=== PATIENT | female | born 1945 | race Caucasian/White ===

== ENCOUNTER 2018-09-10 14:30 | Inpatient (IN) | payer MEDICARE, BC ==
[2018-09-10] MEDS ORDERED: Ondansetron 4 MG/2 ML SDV IV PRN (15:15)
[2018-09-10] MEDS ORDERED: Sodium Chloride 0.9% 10 ML Syringe FLUSH PRN (15:15)
[2018-09-10 16:03] LABS: ANION GAP 14.2 mmol/L (5-15)
--- NOTE | 2018-09-10 17:22 | CR ---
[id number] RAD/RAD Abd Flat and Upright 2V Exam: RAD Abd Flat and Upright 2V Clinical Data: ABDOMINAL PAIN COMPARISON: NO PREVIOUS SIMILAR EXAM IS AVAILABLE FINDINGS: There is significant gastric distention. There is moderate small bowel distention. There is no free air. There are surgical changes. There is no organomegaly. IMPRESSION: MODERATE BOWEL DISTENTION. SIGNIFICANT GASTRIC DISTENTION. CONSIDER CAT SCAN IF NEEDED. Haile Velasquez MD 09/10/18 1533 Thank you for allowing us to participate in the care of your patient.
[2018-09-10] MEDS: Sodium Chloride 0.9% 1,000 ML IV SCH (18:06)
[2018-09-10] MEDS: QUEtiapine 25 MG Tab PO SCH (20:18)
[2018-09-10] MEDS: Aluminum Hydroxide/Magnesium Hydroxide/Simethicone Susp 30 ML Cup PO PRN (20:19)
[2018-09-10] MEDS: Latanoprost 0.005% Ophth Soln 2.5 ML Bottle EYEBOTH SCH (20:20)
[2018-09-10] MEDS ORDERED: LANCETS MC SCH (21:00)
[2018-09-11] MEDS: Sodium Chloride 0.9% 1,000 ML IV SCH ×2 (04:48→19:40)
[2018-09-11] MEDS ORDERED: Insulin Glargine,Human Rec. Analog 100 Units/ML 3 ML Pen SUBCUT SCH ×2 (09:00)
[2018-09-11] MEDS ORDERED: Non-Formulary Medication 1 Each (Insulin Degludec [Tresiba] 30 UNITS) SUBCUT SCH (09:00)
[2018-09-11] MEDS: Ezetimibe 10 MG Tab PO SCH (09:58)
[2018-09-11] MEDS: Carvedilol 12.5 MG Tab PO SCH ×2 (09:58→18:46)
[2018-09-11] MEDS: Aspirin 81 MG Tab.Chew PO SCH (09:59)
[2018-09-11] MEDS: Citalopram 20 MG Tab PO SCH (09:59)
[2018-09-11] MEDS ORDERED: PETROLATUM TOP PRN (12:41)
[2018-09-11] MEDS ORDERED: [UNRECOGNIZED DRUG - OTHER] TOP PRN (12:41)
[2018-09-11] MEDS ORDERED: MINERAL OIL TOP PRN (12:41)
--- NOTE | 2018-09-11 12:47 | PCM.PN ---
- General Info Date of Service: 09/11/18 Functional Status: Reports: Pain Controlled, Tolerating Diet, Urinating, Other ( Is feeling much better today). Denies: Ambulating, New Symptoms - Review of Systems General: Reports: Weakness HEENT: Reports: Other (Hard of hearing) Pulmonary: Reports: No Symptoms Cardiovascular: Reports: Lightheadedness (Lightheadedness upon standing) Gastrointestinal: Reports: Constipation (Now having bowel movements). Denies: Diarrhea, Difficulty Swallowing, Nausea, Vomiting Genitourinary: Reports: No Symptoms Musculoskeletal: Reports: Foot Pain (Bottom of both feet painful). Denies: Joint Swelling Skin: Reports: Pallor, Dryness, Other (Cracked skin bottom of both feet) Neurological: Reports: Difficulty Walking, Weakness - Patient Data Vitals - Most Recent: Last Vital Signs Temp 98.8 F 09/11/18 11:00 Pulse 62 09/11/18 11:00 Resp 18 09/11/18 11:00 BP 136/53 L 09/11/18 11:00 Pulse Ox 93 L 09/11/18 11:00 Weight - Most Recent: 195 lb 4.8 oz I&O - Last 24 Hours: Intake & Output 09/10/18 09/11/18 09/11/18 22:59 06:59 14:59 Intake Total 1225 503 Output Total 1900 Balance 1225 -1397 Lab Results Last 24 Hours: Laboratory Results - last 24 hr 09/10/18 09/10/18 09/11/18 Range/Units 15:30 15:30 07:30 WBC 13.97 H (5.00-10.00) 10^3/uL RBC 3.90 (3.80-5.50) 10^6/uL Hgb 11.1 L (12.0-16.0) g/dL Hct 34.1 L (37.0-47.0) % MCV 87.4 (82.0-92.0) fL MCH 28.5 (27.0-31.0) pg MCHC 32.6 (32.0-36.0) g/dL RDW 13.2 (11.5-14.5) % Plt Count 206 (150-400) 10^3/uL MPV 8.9 (7.4-10.4) fL Immature Gran % (Auto) 0.3 (0.0-5.0) % Neut % (Auto) 64.1 (50.0-70.0) % Lymph % (Auto) 28.3 (20.0-40.0) % [place] % (Auto) 4.7 (2.0-8.0) % Eos % (Auto) 2.4 (1.0-3.0) % Baso % (Auto) 0.2 (0.0-1.0) % Immature Gran # (Auto) 0.04 (0.00-0.50) 10^3/uL Neut # (Auto) 8.95 H (2.50-7.00) 10^3/uL Lymph # (Auto) 3.96 (1.00-4.00) 10^3/uL [place] # (Auto) 0.66 (0.10-0.80) 10^3/uL Eos # (Auto) 0.33 H (0.10-0.30) 10^3/uL Baso # (Auto) 0.03 (0.00-0.10) 10^3/uL Sodium 136 139 (136-145) mmol/L Potassium 5.0 5.3 (3.3-5.3) mmol/L Chloride 99 107 (98-115) mmol/L Carbon Dioxide 27.8 24.3 (21.0-32.0) mmol/L Anion Gap 14.2 13.0 (5-15) mmol/L BUN 93 H* 84 H* (6-25) mg/dL Creatinine 2.67 H 1.87 H (0.51-1.17) mg/dL Est Cr Clr Drug Dosing 15.06 21.50 mL/min Estimated GFR (MDRD) 17 26 mL/min Glucose 249 H 177 H (75 - 99) mg/dL POC Glucose (74-106) mg/dl Calcium 9.8 8.5 L (8.7-10.3) mg/dL Total Bilirubin 0.2 (0.2-1.0) mg/dL AST 12 L (15-37) U/L ALT 17 (12-78) U/L Alkaline Phosphatase 77 (46-116) IU/L Total Protein 7.2 (6.4-8.2) g/dL Albumin 3.56 (3.00-4.80) g/dL 09/11/18 09/11/18 Range/Units 07:30 10:03 WBC 12.73 H (5.00-10.00) 10^3/uL RBC 3.46 L (3.80-5.50) 10^6/uL Hgb 9.9 L (12.0-16.0) g/dL Hct 30.3 L (37.0-47.0) % MCV 87.6 (82.0-92.0) fL MCH 28.6 (27.0-31.0) pg MCHC 32.7 (32.0-36.0) g/dL RDW 13.1 (11.5-14.5) % Plt Count 162 (150-400) 10^3/uL MPV 8.8 (7.4-10.4) fL Immature Gran % (Auto) 0.1 (0.0-5.0) % Neut % (Auto) 63.8 (50.0-70.0) % Lymph % (Auto) 28.3 (20.0-40.0) % [place] % (Auto) 4.6 (2.0-8.0) % Eos % (Auto) 3.0 (1.0-3.0) % Baso % (Auto) 0.2 (0.0-1.0) % Immature Gran # (Auto) 0.01 (0.00-0.50) 10^3/uL Neut # (Auto) 8.13 H (2.50-7.00) 10^3/uL Lymph # (Auto) 3.60 (1.00-4.00) 10^3/uL [place] # (Auto) 0.58 (0.10-0.80) 10^3/uL Eos # (Auto) 0.38 H (0.10-0.30) 10^3/uL Baso # (Auto) 0.03 (0.00-0.10) 10^3/uL Sodium (136-145) mmol/L Potassium (3.3-5.3) mmol/L Chloride (98-115) mmol/L Carbon Dioxide (21.0-32.0) mmol/L Anion Gap (5-15) mmol/L BUN (6-25) mg/dL Creatinine (0.51-1.17) mg/dL Est Cr Clr Drug Dosing mL/min Estimated GFR (MDRD) mL/min Glucose (75 - 99) mg/dL POC Glucose 386 H (74-106) mg/dl Calcium (8.7-10.3) mg/dL Total Bilirubin (0.2-1.0) mg/dL AST (15-37) U/L ALT (12-78) U/L Alkaline Phosphatase (46-116) IU/L Total Protein (6.4-8.2) g/dL Albumin (3.00-4.80) g/dL Med Orders - Current: Current Medications Al Hydroxide/Mg Hydroxide (Mag-Al Plus) 30 ml PO QID PRN PRN Reason: heartburn/upset stomach Last Admin: 09/10/18 20:19 Dose: 30 ml Aspirin (Aspirin) 81 mg PO DAILY [facility] Last Admin: 09/11/18 09:59 Dose: 81 mg Carvedilol (Coreg) 25 mg PO BIDAC [facility] Last Admin: 09/11/18 09:58 Dose: 25 mg Citalopram Hydrobromide (Celexa) 20 mg PO DAILY [facility] Last Admin: 09/11/18 09:59 Dose: 20 mg Ezetimibe (Zetia) 10 mg PO DAILY [facility] Last Admin: 09/11/18 09:58 Dose: 10 mg Sodium Chloride (Normal Saline) 1,000 mls @ 70 mls/hr IV ASDIRECTED [facility] Last Admin: 09/11/18 04:48 Dose: 70 mls/hr Insulin Glargine (Lantus Solostar) 30 units SUBCUT DAILY [facility] Last Admin: 09/11/18 09:59 Dose: 30 units Latanoprost (Xalatan 0.005% Ophth Soln) 0 ml EYEBOTH BEDTIME [facility] Last Admin: 09/10/18 20:20 Dose: 1 drop Ondansetron HCl (Zofran) 4 mg IV Q4H PRN PRN Reason: Nausea/Vomiting Last Admin: 09/10/18 15:45 Dose: 4 mg Quetiapine Fumarate (Seroquel) 12.5 mg PO BEDTIME [facility] Last Admin: 09/10/18 20:18 Dose: 12.5 mg Senna/Docusate Sodium (Senna Plus) 4 tab PO BID [facility] Last Admin: 09/11/18 09:59 Dose: Not Given Sodium Chloride (Saline Flush) 10 ml FLUSH Q8HR PRN PRN Reason: keep vein open Last Admin: 09/10/18 15:30 Dose: 10 ml Discontinued Medications Insulin Glargine (Lantus Solostar) 40 units SUBCUT DAILY [facility] Non-Formulary Medication (Insulin Degludec [Tresiba]) 30 units SUBCUT DAILY [facility] Last Admin: 09/11/18 12:29 Dose: Not Given Non-Formulary Medication (Lancets [Lancets]) 1 each TID JOHNNY - Exam Quality Assessment: No: Supplemental Oxygen General: Alert, Oriented, Cooperative, No Acute Distress HEENT: Pupils Equal, Pupils Reactive, EOMI, Mucous Membr. Moist/[place] Neck: Supple Lungs: Clear to Auscultation, Normal Respiratory Effort Cardiovascular: Regular Rate, Regular Rhythm, Murmurs GI/Abdominal Exam: Soft, No Mass, Distended (Distention improved from yesterday) . No: Rigid, Rebound, Abnormal Bowel Sounds, Mass (Female) Exam: Deferred Back Exam: No: CVA Tenderness (L), CVA Tenderness (R) Extremities: No Pedal Edema Peripheral Pulses: 2+: Radial (R), Femoral (L) Skin: Other (Dry cracked skin bottom of both feet) Neurological: No New Focal Deficit Psy/Mental Status: Alert, Normal Affect, Normal Mood - Problem List Review Problem List Initiated/Reviewed/Updated: Yes - My Orders Last 24 Hours: My Active Orders 09/10/18 15:15 Patient Status [ADT] Routine Up to Chair [RC] ASDIRECTED Vital Signs [RC] 0300,0700,1100,1500,1900,2300 Ondansetron [Zofran] 4 mg IV Q4H PRN Sodium Chloride 0.9% [Saline Flush] 10 ml FLUSH Q8HR PRN Peripheral IV Insertion Adult [OM.PC] Routine Resuscitation Status Routine 09/10/18 15:20 Peripheral IV Care [RC] 0900,2100 09/10/18 15:30 Sodium Chloride 0.9% [Normal Saline] 1,000 ml IV ASDIRECTED 09/10/18 19:59 Alum Hydrox/Mag Hydrox/Simeth [Mag-Al Plus] 30 ml PO QID PRN 09/10/18 21:00 Docusate Sodium/Sennosides [Senna Plus] 4 tab PO BID Latanoprost [Xalatan 0.005% Ophth Soln] 0 ml EYEBOTH BEDTIME QUEtiapine [SEROquel] 12.5 mg PO BEDTIME 09/10/18 Dinner Clear Liquid Diet [DIET] 09/11/18 07:30 Carvedilol [Coreg] 25 mg PO BIDAC 09/11/18 09:00 Aspirin 81 mg PO DAILY Citalopram [Celexa] 20 mg PO DAILY Ezetimibe [Zetia] 10 mg PO DAILY Insulin Glarg,Human.Rec.Analog [LantUS Solostar] 30 units SUBCUT DAILY - Plan Plan:: History Obdulia is a 73-year-old female who was admitted from outpatient clinic yesterday by myself Timmy Bateman nurse practitioner due to low blood pressure along with dizziness. Patient was sent from [facility] from [place] swing bed on August 29 due to dizziness, uncontrolled hypertension, uncontrolled blood sugar levels along with hyperkalemia. Patient has a history of CKD, hyperlipidemia, COPD, obesity, CHRISTEN, coronary artery disease with congestive heart failure and was discharged from [facility] on August 31 and was to follow-up with home health. She was seen by Asael hairston PA had labs drawn and was to follow-up today. Patient is hard of hearing. She is having a difficult time managing her medication thereby endocrinology simplified her treatment regimen by placing her on Novolin 70/30 15 units BID 30 minutes before breakfast and supper. Due to her uncontrolled hypertension she was started on amlodipine 10 mg daily , carvedilol 25 mg BID, clonidine 0.1 mg BID and metolazone 2.5 mg Friday and .Metolazone was then replaced with lasix 40 mg BID.Pressures remained elevatedthroughout the stay and it was recommended that she be managed as outpatient for workup of secondary hypertension. Patient did have hyperkalemia during swing bed at [place] Aldactone and Vasotec were stopped and potassium normalized over the course of the stay. Potassium was 5.1at discharge and Vasotec was restarted.Patient was advised to follow a low sodium, low potassium diet. She is in the clinic today complaining of abdominal distention, constipation, nausea and vomiting, dizziness and her blood pressure is low. Bowel move in 3- 4 days. Denies any fever but states she is quite dizzy today. Update on rounds, patient is feeling better, multiple stools throughout the night, renal function improving with gentle bolus and IV fluids, improved appetite, no more vomiting. Primary hospital problems --Acute kidney injury --Hypotension --Dehydration --T2 DM, uncontrolled --Constipation, with gastric distention and small bowel distention Chronic problems --HFpEF EF 65% --CKD III, acute injury on --CAD --Hyperlipidemia --COPD --Obesity --CHRISTEN --Pick's disease --Depression and anxiety --Glaucoma --Iron deficiency anemia Disposition/overall plan --Continue inpatient status --Reduce IV fluids --SS consult
[2018-09-11] MEDS: Aluminum Hydroxide/Magnesium Hydroxide/Simethicone Susp 30 ML Cup PO PRN (20:18)
[2018-09-11] MEDS: QUEtiapine 25 MG Tab PO SCH (20:19)
[2018-09-11] MEDS: Latanoprost 0.005% Ophth Soln 2.5 ML Bottle EYEBOTH SCH (20:21)
[2018-09-12 07:44] LABS: ANION GAP 12.6 mmol/L (5-15)
[2018-09-12] MEDS: Insulin Regular, Human 100 Units/ML 10 ML Vial SUBCUT SCH ×2 (07:45→08:23)
[2018-09-12] MEDS: Carvedilol 12.5 MG Tab PO SCH (07:53)
[2018-09-12] MEDS: Ezetimibe 10 MG Tab PO SCH (08:40)
[2018-09-12] MEDS: Aspirin 81 MG Tab.Chew PO SCH (08:40)
[2018-09-12] MEDS: Citalopram 20 MG Tab PO SCH (08:40)
--- NOTE | 2018-09-12 10:26 | PCM.DCSUM1 ---
Discharge Summary - Hospital Course Diagnosis: Stroke: No - Discharge Data Discharge Date: 09/12/18 Discharge Disposition: DC/Tfer W/I Hosp To Swing 61 Condition: Good - Discharge Plan Home Medications: Home Meds Acetaminophen with Codeine [Acetaminophen-Cod #3] 1 - 2 tab PO Q6H PRN 08/07/18 [History] Carvedilol 25 mg PO BIDAC 08/07/18 [History] Citalopram [Citalopram HBr] 20 mg PO DAILY 08/07/18 [History] Enalapril [Vasotec] 20 mg PO BID 08/07/18 [History] Lancets 1 each [facility] TID 08/07/18 [History] [place]-3 Fatty Acids/DHA/EPA [[place]-3 Softgel] 1,000 mg PO BID 08/07/18 [History] Sennosides/Docusate Sodium [Senna Plus Tablet] 4 tab PO BID 08/07/18 [History] amLODIPine [Norvasc] 5 mg PO DAILY 08/07/18 [History] cloNIDine HCl [Clonidine HCl ER] 0.1 mg PO BID 08/07/18 [History] Aspirin 81 mg PO DAILY 09/10/18 [History] Calcium Carbonate/Vitamin D3 [Calcium 600 + Vit D 400 Tablet] 1 each PO BIDMEALS 09/10/18 [History] Ezetimibe 1 tab PO DAILY 09/10/18 [History] Furosemide 40 mg PO DAILY 09/10/18 [History] Insulin Degludec [Tresiba] 30 units SUBCUT DAILY 09/10/18 [History] Iron Polysaccharide Complex [Poly-Iron] 1 cap PO ACBREAKFAST 09/10/18 [History] Latanoprost 1 drop OP BEDTIME 09/10/18 [History] Niacinamide [Niacin] 500 mg PO TID 09/10/18 [History] Nitroglycerin [Nitrostat] 0.4 mg SL ASDIRECTED 09/10/18 [History] QUEtiapine [SEROquel] 0.5 tab PO BEDTIME 09/10/18 [History] - Discharge Summary/Plan Comment DC Time >30 min.: Yes Discharge Summary/Plan Comment: Final diagnosis Acute kidney injury, improving Hypotension, resolved Dehydration, resolved T2 DM, uncontrolled, improving Constipation, with gastric distention and small bowel distention, improving History summary Obdulia is a 73-year-old female who was admitted from outpatient clinic yesterday by myself Timmy Bateman nurse practitioner due to low blood pressure along with dizziness. Patient was sent from [facility] from [place] swing bed on August 29 due to dizziness, uncontrolled hypertension, uncontrolled blood sugar levels along with hyperkalemia. Patient has a history of CKD, hyperlipidemia, COPD, obesity, CHRISTEN, coronary artery disease with congestive heart failure and was discharged from [facility] on August 31 and was to follow-up with home health. She was seen by Asael OROZCO had labs drawn and was to follow-up today. Patient is hard of hearing. She is having a difficult time managing her medication thereby endocrinology simplified her treatment regimen by placing her on Novolin 70/30 15 units BID 30 minutes before breakfast and supper. Due to her uncontrolled hypertension she was started on amlodipine 10 mg daily , carvedilol 25 mg BID, clonidine 0.1 mg BID and metolazone 2.5 mg Friday and .Metolazone was then replaced with lasix 40 mg BID.Pressures remained elevatedthroughout the stay and it was recommended that she be managed as outpatient for workup of secondary hypertension. Patient did have hyperkalemia during swing bed at [place] Aldactone and Vasotec were stopped and potassium normalized over the course of the stay. Potassium was5.1at discharge and Vasotec was restarted.Patient was advised to follow a low sodium , low potassium diet. When I seen her in [place] clinic he was complaining of abdominal distention, constipation, nausea and vomiting, dizziness and her blood pressure is low. He had no bowel movement in the previous 3-4 days. Hospital course Patient's short hospital course prior to placing her in swing bed went well. She was given a laxative early on admission and she had multiple stools with much less abdominal distention, abdominal films did demonstrate significant gastric and small bowel distention however no complicating factors such as fever or ischemic bowel was suggested since her clinical condition improved CT was likely not necessary.--Especially in light of recent contrast media injury develop into [place]. IV fluids were given and her BUN and creatinine trended down. Her blood pressure improved, her diabetes insulin blood sugars improved. Physical therapy felt patient could benefit from SNF here at [facility] for medication management, ambulation, rebuilding her strength and monitoring her blood sugars and adjusting medications Disposition Physical therapy was consulted and patient could benefit from SNF here at [facility] for medication management, ambulation, rebuilding her strength and monitoring her blood sugars and adjusting medications - General Info Date of Service: 09/12/18 Functional Status: Reports: Pain Controlled, Tolerating Diet, Ambulating, Urinating. Denies: New Symptoms - Review of Systems General: Reports: Weakness HEENT: Reports: No Symptoms Pulmonary: Reports: No Symptoms Cardiovascular: Reports: No Symptoms Gastrointestinal: Reports: No Symptoms Genitourinary: Reports: No Symptoms Musculoskeletal: Reports: No Symptoms Skin: Reports: Dryness Neurological: Reports: Weakness, Gait Disturbance. Denies: Confusion Psychiatric: Reports: No Symptoms - Patient Data Vitals - Most Recent: Last Vital Signs Temp 98.3 F 09/12/18 06:27 Pulse 57 L 09/12/18 07:53 Resp 18 09/12/18 06:27 BP 172/78 H 09/12/18 07:53 Pulse Ox 93 L 09/12/18 06:27 Weight - Most Recent: 195 lb 4.8 oz I&O - Last 24 hours: Intake & Output 09/11/18 09/12/18 09/12/18 22:59 06:59 14:59 Intake Total 1539 635 Output Total 3100 1425 Balance -1561 -790 Lab Results - Last 24 hrs: Laboratory Results - last 24 hr 09/11/18 09/12/18 09/12/18 Range/Units 17:35 07:15 07:47 Sodium 143 (136-145) mmol/L Potassium 5.1 (3.3-5.3) mmol/L Chloride 110 (98-115) mmol/L Carbon Dioxide 25.5 (21.0-32.0) mmol/L Anion Gap 12.6 (5-15) mmol/L BUN 50 H D (6-25) mg/dL Creatinine 1.13 (0.51-1.17) mg/dL Est Cr Clr Drug Dosing 35.58 mL/min Estimated GFR (MDRD) 47 mL/min Glucose 164 H (75 - 99) mg/dL POC Glucose 191 H 182 H (74-106) mg/dl Calcium 8.3 L (8.7-10.3) mg/dL Med Orders - Current: Current Medications Al Hydroxide/Mg Hydroxide (Mag-Al Plus) 30 ml PO QID PRN PRN Reason: heartburn/upset stomach Last Admin: 09/11/18 20:18 Dose: 30 ml Aspirin (Aspirin) 81 mg PO DAILY [facility] Last Admin: 09/12/18 08:40 Dose: 81 mg Carvedilol (Coreg) 25 mg PO BIDAC [facility] Last Admin: 09/12/18 07:53 Dose: Not Given Citalopram Hydrobromide (Celexa) 20 mg PO DAILY [facility] Last Admin: 09/12/18 08:40 Dose: 20 mg Ezetimibe (Zetia) 10 mg PO DAILY [facility] Last Admin: 09/12/18 08:40 Dose: 10 mg Sodium Chloride (Normal Saline) 1,000 mls @ 70 mls/hr IV ASDIRECTED [facility] Last Admin: 09/11/18 19:40 Dose: 70 mls/hr Insulin Human Regular (Novolin R) 15 unit SUBCUT BIDMEALS [facility]; Protocol Last Admin: 09/12/18 08:23 Dose: Not Given Latanoprost (Xalatan 0.005% Ophth Soln) 0 ml EYEBOTH BEDTIME [facility] Last Admin: 09/11/18 20:21 Dose: 1 drop Multi-Ingredient Ointment (Eucerin Creme) 0 gm TOP TID PRN PRN Reason: cracked heels Last Admin: 09/11/18 13:07 Dose: 1 applic Ondansetron HCl (Zofran) 4 mg IV Q4H PRN PRN Reason: Nausea/Vomiting Last Admin: 09/10/18 15:45 Dose: 4 mg Quetiapine Fumarate (Seroquel) 12.5 mg PO BEDTIME [facility] Last Admin: 09/11/18 20:19 Dose: 12.5 mg Senna/Docusate Sodium (Senna Plus) 4 tab PO BID [facility] Last Admin: 09/12/18 08:39 Dose: 3 tab Sodium Chloride (Saline Flush) 10 ml FLUSH Q8HR PRN PRN Reason: keep vein open Last Admin: 09/10/18 15:30 Dose: 10 ml Discontinued Medications Insulin Glargine (Lantus Solostar) 40 units SUBCUT DAILY [facility] Insulin Glargine (Lantus Solostar) 30 units SUBCUT DAILY [facility] Last Admin: 09/11/18 09:59 Dose: 30 units Non-Formulary Medication (Insulin Degludec [Tresiba]) 30 units SUBCUT DAILY [facility] Last Admin: 09/11/18 12:29 Dose: Not Given Non-Formulary Medication (Lancets [Lancets]) 1 each [facility] TID JOHNNY - Exam Quality Assessment: Denies: Supplemental Oxygen General: Reports: Alert, Oriented Neck: Reports: Supple Lungs: Reports: Clear to Auscultation, Normal Respiratory Effort Cardiovascular: Reports: Regular Rate, Regular Rhythm GI/Abdominal Exam: Normal Bowel Sounds, Soft. No: Distended, Guarding, Rigid, Mass (Female) Exam: Deferred Back Exam: Denies: CVA Tenderness (L), CVA Tenderness (R) Extremities: No Pedal Edema Skin: Reports: Dry Neurological: Reports: No New Focal Deficit Psy/Mental Status: Reports: Alert. Denies: Anxious
[2018-09-12] MEDS ORDERED: Sodium Chloride 0.9% 10 ML Syringe FLUSH PRN (12:30)
== END 2018-09-12 13:00 | disposition swing bed (61) | DRG 683 ==
LOC: KA.MS 14:59
PROVIDERS: ADMIT Nurse Practitioner Family; ATTEND Family Medicine
DX: N17.9 Acute kidney failure, unspecified (principal); I13.0 Hypertensive heart and chronic kidney disease with heart failure and stage 1 through stage 4 chronic kidney disease, or unspecified chronic kidney disease; I50.32 Chronic diastolic (congestive) heart failure; E86.0 Dehydration; K59.00 Constipation, unspecified; K31.89 Other diseases of stomach and duodenum; E87.5 Hyperkalemia; E11.22 Type 2 diabetes mellitus with diabetic chronic kidney disease; E66.9 Obesity, unspecified; J44.9 Chronic obstructive pulmonary disease, unspecified; G47.33 Obstructive sleep apnea (adult) (pediatric); I25.10 Atherosclerotic heart disease of native coronary artery without angina pectoris; N18.3 Chronic kidney disease, stage 3 (moderate); G31.01 Pick's disease; F02.80 Dementia in other diseases classified elsewhere, unspecified severity, without behavioral disturbance, psychotic disturbance, mood disturbance, and anxiety; F32.9 Major depressive disorder, single episode, unspecified; F41.9 Anxiety disorder, unspecified; H40.9 Unspecified glaucoma; E78.5 Hyperlipidemia, unspecified; M54.6 Pain in thoracic spine; Z68.34 Body mass index [BMI] 34.0-34.9, adult; G89.29 Other chronic pain; Z98.41 Cataract extraction status, right eye; Z79.899 Other long term (current) drug therapy; Z98.42 Cataract extraction status, left eye; Z90.89 Acquired absence of other organs
CPT/HCPCS: 36415; 74021; 80048; 80053; 82962; 85025; 97161-GP; A9270-GY; J1815-GY; J1817-GY; J2405; J7030

== ENCOUNTER 2018-09-12 10:36 | Inpatient (IN) | payer MEDICARE, BC ==
[2018-09-12] MEDS ORDERED: PETROLATUM TOP PRN (12:23)
[2018-09-12] MEDS ORDERED: Sodium Chloride 0.9% 10 ML Syringe FLUSH PRN ×2 (12:23)
[2018-09-12] MEDS ORDERED: MINERAL OIL TOP PRN (12:23)
[2018-09-12] MEDS ORDERED: [UNRECOGNIZED DRUG - OTHER] TOP PRN (12:23)
[2018-09-12] MEDS ORDERED: Sodium Chloride 0.9% 1,000 ML IV SCH (12:23)
--- NOTE | 2018-09-12 12:51 | PCM.HP ---
H&P History of Present Illness - General Date of Service: 09/12/18 Admit Problem/Dx: Admission Diagnosis/Problem Admission Diagnosis/Problem Weakness of both lower extremities Source of Information: Patient, Old Records, Provider History Limitations: Reports: No Limitations - History of Present Illness Initial Comments - Free Text/Narative: 73-year-old female who was admitted from outpatient clinic yesterday by myself Timmy Bateman nurse practitioner due to low blood pressure along with dizziness. Patient was sent from [facility] from [facility] swing bed on August 29 due to dizziness, uncontrolled hypertension, uncontrolled blood sugar levels along with hyperkalemia. Patient has a history of CKD, hyperlipidemia, COPD, obesity, CHRISTEN, coronary artery disease with congestive heart failure and was discharged from [facility] on August 31 and was to follow-up with home health. She was seen by Asael OROZCO had labs drawn and was to follow-up today. Patient is hard of hearing. She is having a difficult time managing her medication thereby endocrinology simplified her treatment regimen by placing her on Novolin 70/30 15 units BID 30 minutes before breakfast and supper. Due to her uncontrolled hypertension she was started on amlodipine 10 mg daily , carvedilol 25 mg BID, clonidine 0.1 mg BID and metolazone 2.5 mg Friday and .Metolazone was then replaced with lasix 40 mg BID.Pressures remained elevatedthroughout the stay and it was recommended that she be managed as outpatient for workup of secondary hypertension. Patient did have hyperkalemia during swing bed at [facility] Aldactone and Vasotec were stopped and potassium normalized over the course of the stay. Potassium was 5.1at discharge and Vasotec was restarted.Patient was advised to follow a low sodium, low potassium diet. - Related Data Allergies/Adverse Reactions: Allergies Allergy/AdvReac Type Severity Reaction Status Date / Time blue dye Allergy Other Verified 09/10/18 15:47 fenofibrate [From Tricor] Allergy Other Verified 09/10/18 15:47 simvastatin Allergy Other Verified 09/10/18 15:47 [id number] Reductase Allergy Cannot Verified 09/10/18 15:50 Inhibitor Remember Home Medications: Home Meds Acetaminophen with Codeine [Acetaminophen-Cod #3] 1 - 2 tab PO Q6H PRN 08/07/18 [History] Carvedilol 25 mg PO BIDAC 08/07/18 [History] Citalopram [Citalopram HBr] 20 mg PO DAILY 08/07/18 [History] Enalapril [Vasotec] 20 mg PO BID 08/07/18 [History] Lancets 1 each MC TID 08/07/18 [History] Marble-3 Fatty Acids/DHA/EPA [Ovega-3 Softgel] 1,000 mg PO BID 08/07/18 [History] Sennosides/Docusate Sodium [Senna Plus Tablet] 4 tab PO BID 08/07/18 [History] amLODIPine [Norvasc] 5 mg PO DAILY 08/07/18 [History] cloNIDine HCl [Clonidine HCl ER] 0.1 mg PO BID 08/07/18 [History] Aspirin 81 mg PO DAILY 09/10/18 [History] Calcium Carbonate/Vitamin D3 [Calcium 600 + Vit D 400 Tablet] 1 each PO BIDMEALS 09/10/18 [History] Ezetimibe 1 tab PO DAILY 09/10/18 [History] Furosemide 40 mg PO DAILY 09/10/18 [History] Insulin Degludec [Tresiba] 30 units SUBCUT DAILY 09/10/18 [History] Iron Polysaccharide Complex [Poly-Iron] 1 cap PO ACBREAKFAST 09/10/18 [History] Latanoprost 1 drop OP BEDTIME 09/10/18 [History] Niacinamide [Niacin] 500 mg PO TID 09/10/18 [History] Nitroglycerin [Nitrostat] 0.4 mg SL ASDIRECTED 09/10/18 [History] QUEtiapine [SEROquel] 0.5 tab PO BEDTIME 09/10/18 [History] Past Medical History HEENT History: Reports: Glaucoma, Hard of Hearing, Impaired Vision, Sinusitis, Other (See Below) Other HEENT History: Dyphasia, dizziness Cardiovascular History: Reports: CAD, Heart Failure, High Cholesterol, Hypertension Respiratory History: Reports: COPD, Other (See Below) Other Respiratory History: Lung nodule. 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 Endocrine/Metabolic History: Reports: Diabetes, Type II, IDDM, Obesity/BMI 30+, Other (See Below) Other Endocrine/Metabolic History: Pancreatitis. Goiter Hematologic History: Reports: Anemia, Iron Deficiency, Other (See Below) Other Hematologic History: Hyperkalemia, Hyponatremia, iron deficiency, lactic acidemia Immunologic History: Reports: None - Infectious Disease History Infectious Disease History: Reports: Chicken Pox, Measles, Mumps - Past Surgical History HEENT Surgical History: Reports: Adenoidectomy, Cataract Surgery, Tonsillectomy Other HEENT Surgeries/Procedures: left ear surgery Cardiovascular Surgical History: Reports: None GI Surgical History: Reports: Cholecystectomy, Colonoscopy Female Surgical History: Reports: Tubal Ligation Social & Family History - Family History Family Medical History: Unobtainable HEENT: Reports: Cataract, Glaucoma, Hearing Impairment, Impaired Vision, Otitis Media, Sinusitis Cardiac: Reports: Pacemaker, Prior Cardiac Arrest Other Cardiac Family History: pt states "my brothers had open heart surgery, and my mother had a pacemaker" Respiratory: Reports: COPD, Sleep Apnea GI: Reports: Chronic Constipation, GERD, Irritable Bowel Syndrome : Reports: Diabetic Nephropathy Other OBGYN Family History: cyst on R ovary Musculoskeletal: Reports: None Neurological: Reports: Dementia, Migraines, Neuropathy, Diabetic Psychiatric: Reports: Anxiety, Autism, Depression Endocrine/Metabolic: Reports: Diabetes, type II, Vitamin D Deficiency Hematologic: Reports: Anemia Oncologic: Reports: None - Caffeine Use Caffeine Use: Reports: Coffee Caffeine Use Comment: Coffee every day- one pot of coffee. Pop occasionally. H&P Review of Systems - Review of Systems: Review Of Systems: See Below General: Reports: Weakness HEENT: Reports: No Symptoms Pulmonary: Reports: No Symptoms Cardiovascular: Reports: No Symptoms Gastrointestinal: Reports: No Symptoms Genitourinary: Reports: No Symptoms Musculoskeletal: Reports: No Symptoms Skin: Reports: Dryness Psychiatric: Reports: No Symptoms Neurological: Reports: No Symptoms Hematologic/Lymphatic: Reports: No Symptoms Immunologic: Reports: No Symptoms Exam - Exam Exam: See Below - Exam Quality Assessment: No: Supplemental Oxygen General: Alert, Oriented, Cooperative Neck: Supple Lungs: Clear to Auscultation, Normal Respiratory Effort Cardiovascular: Regular Rate, Regular Rhythm GI/Abdominal Exam: Normal Bowel Sounds, Soft. No: Distended, Guarding, Rigid, Mass (Female) Exam: Deferred Rectal (Female) Exam: Deferred Back Exam: No: CVA Tenderness (L), CVA Tenderness (R) Extremities: No Pedal Edema Peripheral Pulses: 1+: Radial (R), 2+: Femoral (L) Skin: Dry, Other (dry cracked skin bottom of both feet) Neurological: Cranial Nerves Intact, Reflexes Equal Bilateral Neuro Extensive - Mental Status: Alert, Oriented x3, Normal Mood/Affect, Normal Cognition Neuro Extensive - Motor, Sensory, Reflexes: CN II-XII Intact, Normal Gait, Normal Reflexes Psychiatric: Alert, Normal Affect, Normal Mood Problem List Initiated/Reviewed/Updated: Yes Orders Last 24hrs: Active Orders 24 hr Category Date Time Status Patient Status [ADT] Routine ADT 09/12/18 12:25 Active Blood Glucose Check, Bedside [RC] TIDAC Care 09/12/18 12:23 Active Peripheral IV Care [RC] . DIRECTED Care 09/12/18 12:23 Active Peripheral IV Care [RC] . DIRECTED Care 09/12/18 12:23 Active Ready for Discharge [RC] PER UNIT ROUTINE Care 09/12/18 12:23 Active Up to Chair [RC] ASDIRECTED Care 09/12/18 12:23 Active Vital Signs [RC] Q4H Care 09/12/18 12:23 Active Potassium [DIET] Diet 09/12/18 Dinner Active Sodium Restricted Diet [DIET] Diet 09/12/18 Dinner Active Alum Hydrox/Mag Hydrox/Simeth [Mag-Al Plus] Med 09/12/18 12:23 Ordered 30 ml PO QID PRN Aspirin Med 09/13/18 09:00 Ordered 81 mg PO DAILY Carvedilol [Coreg] Med 09/12/18 17:30 Ordered 25 mg PO BIDAC Mobridge/Min Oil/Kisha/Wool Alcoh [Eucerin Creme] Med 09/12/18 12:23 Ordered 0 gm TOP TID PRN Citalopram [Celexa] Med 09/13/18 09:00 Ordered 20 mg PO DAILY Docusate Sodium/Sennosides [Senna Plus] Med 09/12/18 21:00 Ordered 4 tab PO BID Ezetimibe [Zetia] Med 09/13/18 09:00 Ordered 10 mg PO DAILY Latanoprost [Xalatan 0.005% Ophth Soln] Med 09/12/18 21:00 Ordered 0 ml EYEBOTH BEDTIME Ondansetron [Zofran] Med 09/12/18 12:23 Ordered 4 mg IV Q4H PRN QUEtiapine [SEROquel] Med 09/12/18 21:00 Ordered 12.5 mg PO BEDTIME Sodium Chloride 0.9% [Saline Flush] Med 09/12/18 12:23 Ordered 10 ml FLUSH Q8HR PRN Sodium Chloride 0.9% [Saline Flush] Med 09/12/18 12:23 Ordered 10 ml FLUSH Q8HR PRN Peripheral IV Insertion Adult [OM.PC] Routine Oth 09/12/18 12:23 Ordered Resuscitation Status Routine Resus Stat 09/12/18 12:30 Ordered Medication Orders Al Hydroxide/Mg Hydroxide (Mag-Al Plus) 30 ml PO QID PRN PRN Reason: heartburn/upset stomach Aspirin (Aspirin) 81 mg PO DAILY JOHNNY Carvedilol (Coreg) 25 mg PO BIDAC JOHNNY Citalopram Hydrobromide (Celexa) 20 mg PO DAILY JOHNNY Ezetimibe (Zetia) 10 mg PO DAILY JOHNNY Latanoprost (Xalatan 0.005% Ophth Soln) 0 ml EYEBOTH BEDTIME JOHNNY Multi-Ingredient Ointment (Eucerin Creme) 0 gm TOP TID PRN PRN Reason: cracked heels Ondansetron HCl (Zofran) 4 mg IV Q4H PRN PRN Reason: Nausea/Vomiting Quetiapine Fumarate (Seroquel) 12.5 mg PO BEDTIME JOHNNY Senna/Docusate Sodium (Senna Plus) 4 tab PO BID JOHNNY Sodium Chloride (Saline Flush) 10 ml FLUSH Q8HR PRN PRN Reason: keep vein open Sodium Chloride (Saline Flush) 10 ml FLUSH Q8HR PRN PRN Reason: keep vein open Assessment/Plan Comment:: History of present illness Obdulia is a 73-year-old female who was admitted from outpatient clinic yesterday by myself Timmy Bateman nurse practitioner due to low blood pressure along with dizziness. Patient was sent from [facility] from [facility] swing bed on August 29 due to dizziness, uncontrolled hypertension, uncontrolled blood sugar levels along with hyperkalemia. Patient has a history of CKD, hyperlipidemia, COPD, obesity, CHRISTEN, coronary artery disease with congestive heart failure and was discharged from [facility] on August 31 and was to follow-up with home health. She was seen by Asael OROZCO had labs drawn and was to follow-up today. Patient is hard of hearing. She is having a difficult time managing her medication thereby endocrinology simplified her treatment regimen by placing her on Novolin 70/30 15 units BID 30 minutes before breakfast and supper. Due to her uncontrolled hypertension she was started on amlodipine 10 mg daily , carvedilol 25 mg BID, clonidine 0.1 mg BID and metolazone 2.5 mg Friday and .Metolazone was then replaced with lasix 40 mg BID.Pressures remained elevatedthroughout the stay and it was recommended that she be managed as outpatient for workup of secondary hypertension. Patient did have hyperkalemia during swing bed at [facility] Aldactone and Vasotec were stopped and potassium normalized over the course of the stay. Potassium was 5.1at discharge and Vasotec was restarted.Patient was advised to follow a low sodium, low potassium diet. [facility] course at [place] Patient's short hospital course prior to placing her in swing bed went well. She was given a laxative early on admission and she had multiple stools with much less abdominal distention, abdominal films did demonstrate significant gastric and small bowel distention however no complicating factors such as fever or ischemic bowel was suggested since her clinical condition improved CT was likely not necessary especially in light of recent contrast media renal injury. IV fluids were given and her BUN and creatinine trended down nicely necessitating stopping IV fluids upon transferring into SNF. Her blood pressure improved, her diabetes insulin blood sugars improved although still requiring significant adjustments and more stabilization as needed. Physical therapy by way the patient while acute care and felt that the patient could benefit from SNF here at [facility] for medication management, ambulation, rebuilding her strength and monitoring her blood sugars and adjusting medications. Although PT note reflects up to 2 weeks likely patient would need approximately 1 week as she appears to be resting quite rapidly exceeding her baseline ADL capabilities Update on rounds, patient is feeling better, multiple stools throughout the night, renal function improving with gentle bolus and IV fluids, improved appetite, no more vomiting. Primary SNF problems --Acute kidney injury, resolving --Hypotension --Dehydration --T2 DM, uncontrolled --Constipation, with gastric distention and small bowel distention Chronic problems --HFpEF EF 65% --CKD III, acute injury on --CAD --Hyperlipidemia --COPD --Obesity --CHRISTEN --Pick's disease --Depression and anxiety --Glaucoma --Iron deficiency anemia Disposition/overall plan --Admit to SNF here at [place] for med mgt, ambulation, rebuilding her strength and monitoring her blood sugars. Although PT note reflects up to 2 weeks likely patient would need approximately 1 week as she appears to be progressing rapidly towards exceeding her baseline ADL capabilities --Saline lock --Diabetic regimen NovoLog 70/30 15u BID
[2018-09-12] MEDS: Ondansetron 4 MG/2 ML SDV IV PRN (15:08)
[2018-09-12] MEDS ORDERED: Insulin Regular, Human 100 Units/ML 10 ML Vial SUBCUT SCH (18:00)
[2018-09-12] MEDS: Carvedilol 12.5 MG Tab PO SCH (18:03)
[2018-09-12] MEDS: Insuln Aspart Prot/Insulin Aspart 100 Units/ML 3 ML FlexPen SUBCUT SCH (18:26)
[2018-09-12] MEDS: QUEtiapine 25 MG Tab PO SCH (20:32)
[2018-09-12] MEDS: Latanoprost 0.005% Ophth Soln 2.5 ML Bottle EYEBOTH SCH (20:35)
[2018-09-13 08:03] LABS: ANION GAP 11.7 mmol/L (5-15); CHLORIDE,CL 110 mmol/L (98-115); SODIUM,NA 142 mmol/L (136-145)
[2018-09-13] MEDS: Ezetimibe 10 MG Tab PO SCH (08:15)
[2018-09-13] MEDS: Aspirin 81 MG Tab.EC PO SCH (08:15)
[2018-09-13] MEDS: Citalopram 20 MG Tab PO SCH (08:15)
[2018-09-13] MEDS: Carvedilol 12.5 MG Tab PO SCH ×2 (08:15→17:57)
[2018-09-13] MEDS: Insuln Aspart Prot/Insulin Aspart 100 Units/ML 3 ML FlexPen SUBCUT SCH ×2 (08:19→17:59)
[2018-09-13] MEDS: Acetaminophen 650 MG Tab.ER PO SCH ×2 (12:10→17:51)
[2018-09-13] MEDS: Aluminum Hydroxide/Magnesium Hydroxide/Simethicone Susp 30 ML Cup PO PRN (20:59)
[2018-09-13] MEDS: QUEtiapine 25 MG Tab PO SCH (21:01)
[2018-09-13] MEDS: Latanoprost 0.005% Ophth Soln 2.5 ML Bottle EYEBOTH SCH (21:03)
[2018-09-14] MEDS: Acetaminophen 650 MG Tab.ER PO SCH ×4 (05:04→21:39)
[2018-09-14] MEDS: Insuln Aspart Prot/Insulin Aspart 100 Units/ML 3 ML FlexPen SUBCUT SCH ×2 (08:05→18:08)
[2018-09-14] MEDS: Ezetimibe 10 MG Tab PO SCH (09:46)
[2018-09-14] MEDS: Citalopram 20 MG Tab PO SCH (09:46)
[2018-09-14] MEDS: Aspirin 81 MG Tab.EC PO SCH (09:46)
[2018-09-14] MEDS: Carvedilol 12.5 MG Tab PO SCH ×2 (09:47→18:08)
[2018-09-14] MEDS: QUEtiapine 25 MG Tab PO SCH (20:03)
[2018-09-14] MEDS: Latanoprost 0.005% Ophth Soln 2.5 ML Bottle EYEBOTH SCH (20:04)
[2018-09-15] MEDS: Acetaminophen 650 MG Tab.ER PO SCH ×3 (06:26→21:12)
[2018-09-15] MEDS: Carvedilol 12.5 MG Tab PO SCH ×2 (06:35→17:53)
[2018-09-15] MEDS: Ezetimibe 10 MG Tab PO SCH (08:09)
[2018-09-15] MEDS: Insuln Aspart Prot/Insulin Aspart 100 Units/ML 3 ML FlexPen SUBCUT SCH ×2 (08:09→18:15)
[2018-09-15] MEDS: Citalopram 20 MG Tab PO SCH (08:09)
[2018-09-15] MEDS: Aspirin 81 MG Tab.EC PO SCH (08:09)
--- NOTE | 2018-09-15 09:39 | PCM.SN ---
- Free Text/Narrative Note: reviewed blood glucose levels, have improved however not ideal and still slightly elevated, increase NovoLog 70/30 from 15 to 17 Units BID
[2018-09-15] MEDS: QUEtiapine 25 MG Tab PO SCH (21:12)
[2018-09-15] MEDS: Latanoprost 0.005% Ophth Soln 2.5 ML Bottle EYEBOTH SCH (21:14)
[2018-09-15] MEDS: Ceres/Mineral Oil/Petrolatum/Wool Alcohol Cream 57 GM Tube TOP PRN (21:14)
[2018-09-16] MEDS: Acetaminophen 650 MG Tab.ER PO SCH ×3 (06:31→21:09)
[2018-09-16] MEDS: Carvedilol 12.5 MG Tab PO SCH ×2 (07:26→18:02)
[2018-09-16] MEDS: Insuln Aspart Prot/Insulin Aspart 100 Units/ML 3 ML FlexPen SUBCUT SCH ×2 (07:58→18:03)
[2018-09-16] MEDS: Aspirin 81 MG Tab.EC PO SCH (07:59)
[2018-09-16] MEDS: Citalopram 20 MG Tab PO SCH (07:59)
[2018-09-16] MEDS: Ezetimibe 10 MG Tab PO SCH (07:59)
[2018-09-16 08:02] LABS: ANION GAP 14.6 mmol/L (5-15)
[2018-09-16] MEDS: QUEtiapine 25 MG Tab PO SCH (21:09)
[2018-09-16] MEDS: Latanoprost 0.005% Ophth Soln 2.5 ML Bottle EYEBOTH SCH (21:09)
[2018-09-17] MEDS: Acetaminophen 650 MG Tab.ER PO SCH ×3 (06:17→21:26)
[2018-09-17] MEDS: Carvedilol 12.5 MG Tab PO SCH ×3 (06:28→18:09)
[2018-09-17] MEDS: Ezetimibe 10 MG Tab PO SCH (08:18)
[2018-09-17] MEDS: Insuln Aspart Prot/Insulin Aspart 100 Units/ML 3 ML FlexPen SUBCUT SCH ×2 (08:18→18:11)
[2018-09-17] MEDS: Aspirin 81 MG Tab.EC PO SCH (08:18)
[2018-09-17] MEDS: Citalopram 20 MG Tab PO SCH (08:18)
[2018-09-17] MEDS: Latanoprost 0.005% Ophth Soln 2.5 ML Bottle EYEBOTH SCH (21:25)
[2018-09-17] MEDS: amLODIPine 5 MG Tab PO SCH (21:26)
[2018-09-17] MEDS: QUEtiapine 25 MG Tab PO SCH (21:26)
[2018-09-18] MEDS: Acetaminophen 650 MG Tab.ER PO SCH ×3 (06:24→21:15)
[2018-09-18] MEDS: Carvedilol 12.5 MG Tab PO SCH ×2 (07:59→18:37)
[2018-09-18] MEDS: Aspirin 81 MG Tab.EC PO SCH (08:01)
[2018-09-18] MEDS: Enalapril 5 MG Tab PO SCH ×2 (08:01→21:12)
[2018-09-18] MEDS: amLODIPine 5 MG Tab PO SCH (08:01)
[2018-09-18] MEDS: Ezetimibe 10 MG Tab PO SCH (08:01)
[2018-09-18] MEDS: Citalopram 20 MG Tab PO SCH (08:01)
[2018-09-18] MEDS: Insuln Aspart Prot/Insulin Aspart 100 Units/ML 3 ML FlexPen SUBCUT SCH ×2 (08:02→18:33)
[2018-09-18] MEDS: Ceres/Mineral Oil/Petrolatum/Wool Alcohol Cream 57 GM Tube TOP PRN ×2 (08:02→18:36)
[2018-09-18] MEDS: QUEtiapine 25 MG Tab PO SCH (21:17)
[2018-09-18] MEDS: Latanoprost 0.005% Ophth Soln 2.5 ML Bottle EYEBOTH SCH (21:21)
[2018-09-19] MEDS: Acetaminophen 650 MG Tab.ER PO SCH ×3 (06:26→22:15)
[2018-09-19] MEDS: Carvedilol 12.5 MG Tab PO SCH ×2 (06:55→17:35)
[2018-09-19] MEDS: Insuln Aspart Prot/Insulin Aspart 100 Units/ML 3 ML FlexPen SUBCUT SCH ×2 (08:26→18:15)
[2018-09-19] MEDS: Aspirin 81 MG Tab.EC PO SCH (08:27)
[2018-09-19] MEDS: Ezetimibe 10 MG Tab PO SCH (08:27)
[2018-09-19] MEDS: Citalopram 20 MG Tab PO SCH (08:27)
[2018-09-19] MEDS: amLODIPine 5 MG Tab PO SCH (08:28)
[2018-09-19] MEDS: Enalapril 5 MG Tab PO SCH ×2 (08:28→22:16)
[2018-09-19] MEDS: Latanoprost 0.005% Ophth Soln 2.5 ML Bottle EYEBOTH SCH (22:16)
[2018-09-19] MEDS: QUEtiapine 25 MG Tab PO SCH (22:16)
[2018-09-20] MEDS: Aluminum Hydroxide/Magnesium Hydroxide/Simethicone Susp 30 ML Cup PO PRN (00:20)
[2018-09-20] MEDS: Ondansetron 4 MG/2 ML SDV IV PRN (00:45)
[2018-09-20 01:47] LABS: ANION GAP 14.9 mmol/L (5-15)
[2018-09-20] MEDS ORDERED: Sodium Chloride 0.9% 250 ML IV ONE (02:00)
[2018-09-20] MEDS ORDERED: Sodium Chloride 0.9% 1,000 ML IV SCH (02:15)
[2018-09-20] MEDS ORDERED: Sodium Chloride 0.9% 50 ML IV SCH (02:45)
[2018-09-20] MEDS ORDERED: Iopamidol 755 Mg/ML 75 ML Bottle IVPUSH ONE (02:45)
[2018-09-20] MEDS: Acetaminophen 650 MG Tab.ER PO SCH (06:39)
[2018-09-20] MEDS: Carvedilol 12.5 MG Tab PO SCH (06:40)
[2018-09-20] MEDS: Enalapril 5 MG Tab PO SCH (08:25)
[2018-09-20] MEDS: Ezetimibe 10 MG Tab PO SCH (08:26)
[2018-09-20] MEDS: Aspirin 81 MG Tab.EC PO SCH (08:26)
[2018-09-20] MEDS: Citalopram 20 MG Tab PO SCH (08:26)
[2018-09-20] MEDS: amLODIPine 5 MG Tab PO SCH (08:26)
[2018-09-20 08:35] LABS: ANION GAP 11.4 mmol/L (5-15)
[2018-09-20] MEDS: Insuln Aspart Prot/Insulin Aspart 100 Units/ML 3 ML FlexPen SUBCUT SCH (08:50)
--- NOTE | 2018-09-20 09:53 | CT ---
[id number] CT/CT Abdomen W IV EXAM: CT Abdomen W IV CLINICAL DATA: ABDOMINAL PAIN COMPARISON STUDY: None. FINDINGS: Dependent atelectasis at the lung bases. The heart is enlarged. Coronary artery disease. Aortic valvular and mitral annular calcifications. Atherosclerotic calcifications of the aorta and its branches. The liver, spleen, and pancreas are unremarkable. The gallbladder surgically absent. There is a 2.4 cm fat-containing left adrenal nodule consistent with a myolipoma. The right adrenal gland is unremarkable. The kidneys are unremarkable. No hydronephrosis or hydroureter. No obstructing renal calculi are identified. No bowel obstruction or inflammation. There is significant redundant sigmoid colon. Fluid-filled small and large bowel. No lymphadenopathy, free fluid, or pneumoperitoneum. Scattered changes of spondylosis the spine. No fracture or osseous lesion. IMPRESSION: 1. Fluid-filled small and large bowel. There is no evidence of obstruction but this could suggest enterocolitis. 2. 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 Vikram Dial DO 09/20/18 [id number] Thank you for allowing us to participate in the care of your patient.
[2018-09-20] MEDS ORDERED: amLODIPine 5 MG Tab PO ONE (12:13)
--- NOTE | 2018-09-20 13:15 | CR ---
[id number] RAD/RAD Chest PA And Lateral EXAM: RAD Chest PA And Lateral INDICATION: CONGESTIVE HEART FAILURE COMPARISON: None. DISCUSSION: Cardiomediastinal silhouette is enlarged. No infiltrate, effusion, pneumothorax, or edema. IMPRESSION: Megaly without evidence of congestive heart failure exacerbation. Vikrma Dial DO 09/20/18 1314 Thank you for allowing us to participate in the care of your patient.
[2018-09-21] MEDS ORDERED: amLODIPine 5 MG Tab PO SCH (09:00)
--- NOTE | 2018-09-23 17:48 | PCM.DCSUM1 ---
Discharge Summary - Hospital Course HPI Initial Comments: Obdulia is a 73 year old female who was initially admitted to the hospital from an outpatient clinic on 09/09/18 due to hypotension, dizziness, and abdominal pain. Patient was previously in [facility] on August 29 and was transferred to [place] for dizziness, uncontrolled HTN, uncontrolled DM, and hyperkalemia. Patient has a history of CKD, hyperlipidemia, COPD, obesity, CHRISTEN, CAD with CHF and was discharged from [facility] on August 31. At that time patient was started on amlodipine 10mg, carvedilol 25mg BID, Clonidine 0.1mg BID, and metolazone 2.5mg Friday and . Metolazone was replaced with Lasix BID. Patient did have hyperkalemia during hospitalization which normalized with discontinuation of Aldactone and Vasotec. Hospital course: Patient's initial course prior to placing in swing bed was going well. She was given laxative early on in admission and she had multiple stools with improvement in abdominal distention. She had x-ray imaging of the abdomen done which demonstrated significant gastric and small bowel distention. Patient did improve clinically in this regard. She did previously have an ONEIDA likely from recent contrast media injury. IV fluids were given on admit and her BUN and creatinine trended down nicely. BP has improved overall and patient had been taking Amlodipine 5mg daily and enalapril 10mg BID. Blood sugar control has improved. Patient was transferred to SNF here at [facility] for medication management, ambulation, rebuilding her strength, monitoring her blood sugars and adjusting medications. During the enterprise services manager hours of 09/20/18 the patient began to complain of sudden onset of severe abdominal pain, with nausea, vomiting, and frequent diarrhea. CBC done at that time with increased WBC at 17.75 however normal neutrophil count. Lipase mildly increased at 432. Na-134, K+4.8, BUN-43, Creatinine 1.28. GFR 41. Abdominal assessment with a significant acutely tender abdomen primarily to the LLQ and LUQ but generalized tenderness noted, with patient guarding of abdomen. Patient afebrile. She had been having normal, regular BM prior to onset of acute abdominal pain. IV zofran given with limited relief initially. Maalox given. Patient was given a 250mL NS bolus x2 and started on maintenance fluid. CT of the abdomen pelvis done showing "large distal duodenal diverticulum, of uncertain clinical significance, fluid-filled but non-obstructed large and small bowel, possible enteritis. Also of note- left adrenal lesion with the appearance of a benign myelolipoma, without hemorrhage. Small fat containing abdominal wall hernia." Repeat labwork done in the AM with mild improvement in renal function with BUN 40, creatinine 1.19, sodium 124. Potassium noted to be elevated at 6.0. recheck potassium done and 6.0. Given hyperkalemia and concerns for acute on chronic kidney injury patient switched from SNF to Inpatient status. Hospital Problems: #Colitis, mild pancreatitis- Mild continued nausea. Zofran PRN. Abdominal pain is improved although quite tender to palpation. #Hyperkalemia- Will proceed with kaexylate x2 doses with recheck in AM. On telemetry. #Hypertension- discontinue enalapril given hyperkalemia. Will increased amlodipine. Continue on coreg BID. Will start clonidine 0.1mg BID. #Acute kidney injury- continue with IV therapy. BNP done today given underlying CHF and normal at 17. chest x-ray done with cardiomegaly without acute exacerbation. Recheck renal function in the AM Chronic conditions- #CAD- On ASA therapy #CHF- BNP 17 #HLD- intolerant to statins. On ezetimibe #LUZ MARIA- On Niferex #DM- Novolog 70/30 BID #Constipation- on Senna- will hold given current diarrhea. #CKD #Depression and Anxiety- Celexa #Hyponatremia- Disposition: Switch from SNF to inpatient status. Start telemetry monitoring given Hyperkalemia. Re-evaluate on rounds tomorrow. - Discharge Data Discharge Date: 09/20/18 Discharge Disposition: Admitted As Inpatient 64 Condition: Good - Discharge Diagnosis/Problem(s) (1) Hyperkalemia SNOMED Code(s): 29152566 ICD Code: E87.5 - HYPERKALEMIA Status: Acute Priority: Medium Onset Date: 08/11/18 Problem Details: Mild persistent hyperkalemia despite previous increased Lasix therapy after increase of her previous spironolactone. Has received Kayexalate periodically to help with elevated levels. 5.8 yesterday. 5.1 today after Kayexalate. 6.6 was highest level on 08/20 Lisinopril placed on hold yesterday. (2) Hypertension SNOMED Code(s): 77688853 ICD Code: I10 - ESSENTIAL (PRIMARY) HYPERTENSION Status: Chronic Priority : Medium Problem Details: Blood pressures improved overall but continue to have wide swings between normotensive levels and levels where systolic BP remains in the 180s. Lisinopril currently on hold due to persistent issues with hyperkalemia. Qualifiers: Hypertension type: essential hypertension Qualified Code(s): I10 - Essential (primary) hypertension (3) Renal insufficiency SNOMED Code(s): 528310547, 815762016 ICD Code: N28.9 - DISORDER OF KIDNEY AND URETER, UNSPECIFIED Status: Chronic Priority: Medium Problem Details: Mildly progressive diabetic nephropathy noted. - Patient Instructions Diet: Heart Healthy Diet, Low Sodium, Renal Diet Notify Provider of: Fever, Increased Pain, Nausea and/or Vomiting - Discharge Plan Home Medications: Home Meds Acetaminophen with Codeine [Acetaminophen-Cod #3] 1 - 2 tab PO Q6H PRN 08/07/18 [History] Carvedilol 25 mg PO BIDAC 08/07/18 [History] Citalopram [Citalopram HBr] 20 mg PO DAILY 08/07/18 [History] Lancets 1 each MC TID 08/07/18 [History] [place]-3 Fatty Acids/DHA/EPA [Ovega-3 Softgel] 1,000 mg PO BID 08/07/18 [History] Aspirin 81 mg PO DAILY 09/10/18 [History] Calcium Carbonate/Vitamin D3 [Calcium 600-Vit D3 400 Tablet] 1 each PO BIDMEALS 09/10/18 [History] Ezetimibe 1 tab PO DAILY 09/10/18 [History] Iron Polysaccharide Complex [Poly-Iron] 1 cap PO ACBREAKFAST 09/10/18 [History] Latanoprost 1 drop OP BEDTIME 09/10/18 [History] Niacinamide [Niacin] 500 mg PO TID 09/10/18 [History] Nitroglycerin [Nitrostat] 0.4 mg SL ASDIRECTED 09/10/18 [History] QUEtiapine [SEROquel] 0.5 tab PO BEDTIME 09/10/18 [History] Acetaminophen [Tylenol Arthritis] 650 mg PO Q8HR 09/20/18 [History] Alum Hydrox/Mag Hydrox/Simeth [Mag-Al Plus] 30 ml PO QID PRN 09/20/18 [History] [place]/Min Oil/Kisha/Wool Alcoh [Eucerin Creme] 1 applic TOP TID PRN 09/20/18 [ History] Sennosides/Docusate Sodium [Senna-Docusate Sodium Tablet] 4 tab PO BID 09/20/18 [History] Insuln Asp Prot/Insulin Aspart [NovoLOG Mix 70-30] 17 unit SUBCUT BIDMEALS #3 pen 09/22/18 [Rx] amLODIPine [Norvasc] 10 mg PO DAILY #90 tablet 09/22/18 [Rx] cloNIDine HCl [Clonidine HCl ER] 0.1 mg PO BID #60 tab.er.12h 09/22/18 [Rx] - Discharge Summary/Plan Comment DC Time >30 min.: Yes - General Info Date of Service: 09/20/18 Admission Dx/Problem (Free Text: Admission Diagnosis/Problem Admission Diagnosis/Problem Weakness of both lower extremities - Review of Systems General: Reports: Appetite. Denies: Fever HEENT: Reports: No Symptoms Pulmonary: Reports: No Symptoms Cardiovascular: Reports: No Symptoms Gastrointestinal: Reports: Abdominal Pain, Diarrhea, Nausea, Vomiting Genitourinary: Reports: No Symptoms Musculoskeletal: Reports: No Symptoms Skin: Reports: No Symptoms Neurological: Reports: No Symptoms Psychiatric: Reports: No Symptoms - Patient Data Vitals - Most Recent: Last Vital Signs Temp 96.9 F 09/20/18 06:37 Pulse 58 L 09/20/18 06:40 Resp 12 09/20/18 06:37 BP 152/76 H 09/20/18 12:32 Pulse Ox 92 L 09/20/18 06:37 Weight - Most Recent: 189 lb 6 oz Med Orders - Current: Current Medications Discontinued Medications Acetaminophen (Tylenol Arthritis Pain) 650 mg PO Q8H [facility] Last Admin: 09/14/18 05:04 Dose: Not Given Acetaminophen (Tylenol Arthritis Pain) 650 mg PO Q8H [facility] Last Admin: 09/20/18 06:39 Dose: 650 mg Al Hydroxide/Mg Hydroxide (Mag-Al Plus) 30 ml PO QID PRN PRN Reason: heartburn/upset stomach Last Admin: 09/20/18 00:20 Dose: 30 ml Amlodipine Besylate (Norvasc) 5 mg PO DAILY [facility] Last Admin: 09/20/18 08:26 Dose: 5 mg Amlodipine Besylate (Norvasc) 5 mg PO ONETIME ONE Stop: 09/20/18 12:14 Last Admin: 09/20/18 12:32 Dose: 5 mg Amlodipine Besylate (Norvasc) 10 mg PO DAILY [facility] Aspirin (Halfprin) 81 mg PO DAILY [facility] Last Admin: 09/20/18 08:26 Dose: 81 mg Carvedilol (Coreg) 25 mg PO BIDAC [facility] Last Admin: 09/20/18 06:40 Dose: 25 mg Citalopram Hydrobromide (Celexa) 20 mg PO DAILY [facility] Last Admin: 09/20/18 08:26 Dose: 20 mg Ezetimibe (Zetia) 10 mg PO DAILY [facility] Last Admin: 09/20/18 08:26 Dose: 10 mg Enalapril Maleate (Vasotec) 10 mg PO BID [facility] Last Admin: 09/20/18 08:25 Dose: 10 mg Sodium Chloride (Normal Saline) 1,000 mls @ 70 mls/hr IV ASDIRECTED [facility] Sodium Chloride (Normal Saline) 250 mls @ 999 mls/hr IV ONETIME ONE Stop: 09/20/18 02:15 Last Admin: 09/20/18 02:52 Dose: Not Given Sodium Chloride (Normal Saline) 1,000 mls @ 70 mls/hr IV ASDIRECTED [facility] Last Admin: 09/20/18 02:48 Dose: 70 mls/hr Sodium Chloride (Normal Saline) 50 mls @ 200 mls/min IV ASDIRECTED [facility] Last Admin: 09/20/18 03:21 Dose: 200 mls/min Insulin Aspart (Novolog Mix 70-30) 15 unit SUBCUT BIDMEALS [facility] Last Admin: 09/15/18 08:09 Dose: 15 units Insulin Aspart (Novolog Mix 70-30) 17 unit SUBCUT BIDMEALS [facility] Last Admin: 09/20/18 08:50 Dose: 17 unit Insulin Human Regular (Novolin R) 15 unit SUBCUT BIDMEALS [facility]; Protocol Iopamidol (Isovue-370 (76%)) 75 ml IVPUSH ONETIME ONE Stop: 09/20/18 02:46 Last Admin: 09/20/18 03:21 Dose: 75 ml Latanoprost (Xalatan 0.005% Ophth Soln) 0 ml EYEBOTH BEDTIME [facility] Last Admin: 09/19/18 22:16 Dose: 1 drop Multi-Ingredient Ointment (Eucerin Creme) 0 gm TOP TID PRN PRN Reason: cracked heels Last Admin: 09/13/18 21:07 Dose: 1 applic Multi-Ingredient Ointment (Eucerin Creme) 0 gm TOP TID PRN PRN Reason: cracked heels Last Admin: 09/18/18 18:36 Dose: 1 applic Ondansetron HCl (Zofran) 4 mg IV Q4H PRN PRN Reason: Nausea/Vomiting Last Admin: 09/20/18 00:45 Dose: 4 mg Quetiapine Fumarate (Seroquel) 12.5 mg PO BEDTIME [facility] Last Admin: 09/19/18 22:16 Dose: 12.5 mg Senna/Docusate Sodium (Senna Plus) 4 tab PO BID [facility] Last Admin: 09/20/18 09:21 Dose: Not Given Sodium Chloride (Saline Flush) 10 ml FLUSH Q8HR PRN PRN Reason: keep vein open Sodium Chloride (Saline Flush) 10 ml FLUSH Q8HR PRN PRN Reason: keep vein open - Exam General: Reports: Alert, Oriented Neck: Reports: Supple, No JVD Lungs: Reports: Clear to Auscultation, Normal Respiratory Effort Cardiovascular: Reports: Regular Rate, Regular Rhythm GI/Abdominal Exam: Normal Bowel Sounds, Guarding, Tender, Other (generalized abdominal tenderness. increased pain to LUQ and LLQ) (Female) Exam: Deferred Rectal (Female) Exam: Deferred Extremities: No Pedal Edema Skin: Reports: Warm, Dry, Intact Neurological: Reports: No New Focal Deficit Psy/Mental Status: Reports: Alert
== END 2018-09-20 12:26 | disposition critical access hospital (66) | DRG 638 ==
LOC: KA.MS 13:00
PROVIDERS: ADMIT Nurse Practitioner Family; ATTEND Family Medicine
DX: E11.65 Type 2 diabetes mellitus with hyperglycemia (principal); I13.0 Hypertensive heart and chronic kidney disease with heart failure and stage 1 through stage 4 chronic kidney disease, or unspecified chronic kidney disease; R53.1 Weakness; I25.10 Atherosclerotic heart disease of native coronary artery without angina pectoris; I50.9 Heart failure, unspecified; N18.9 Chronic kidney disease, unspecified; E78.5 Hyperlipidemia, unspecified; E66.9 Obesity, unspecified; G47.33 Obstructive sleep apnea (adult) (pediatric); H40.9 Unspecified glaucoma; H54.7 Unspecified visual loss; H91.90 Unspecified hearing loss, unspecified ear; R91.1 Solitary pulmonary nodule; K59.00 Constipation, unspecified; K21.9 Gastro-esophageal reflux disease without esophagitis; G89.29 Other chronic pain; M54.9 Dorsalgia, unspecified; E11.22 Type 2 diabetes mellitus with diabetic chronic kidney disease; E11.40 Type 2 diabetes mellitus with diabetic neuropathy, unspecified; F31.9 Bipolar disorder, unspecified; F41.9 Anxiety disorder, unspecified; F03.90 Unspecified dementia, unspecified severity, without behavioral disturbance, psychotic disturbance, mood disturbance, and anxiety; Z88.8 Allergy status to other drugs, medicaments and biological substances; Z79.82 Long term (current) use of aspirin; Z79.4 Long term (current) use of insulin; Z79.899 Other long term (current) drug therapy
CPT/HCPCS: 36415; 71046; 74177; 80048; 80053; 82962; 83690; 83880; 84132; 85025; 97110-GP; 97161-GP; 97530-GP; A9270-GY; J1815-GY; J2405; J7030; J7050; Q9967

== ENCOUNTER 2018-09-20 12:27 | Inpatient (IN) | payer MEDICARE, BC ==
[2018-09-20] MEDS ORDERED: Sodium Chloride 0.9% 10 ML Syringe FLUSH PRN (16:04)
[2018-09-20] MEDS: Sodium Polystyrene Sulfonate 15 GM/60 ML Susp 60 ML Bot PO SCH ×2 (16:16→21:45)
--- NOTE | 2018-09-20 16:42 | PCM.HP ---
H&P History of Present Illness - General Date of Service: 09/20/18 Admit Problem/Dx: Admission Diagnosis/Problem Admission Diagnosis/Problem Hyperkalemia, colitis, mild pancreatitis Source of Information: Patient, Old Records - History of Present Illness Initial Comments - Free Text/Narative: History Summary: Obdulia is a 73 year old female who was initially admitted to the hospital from an outpatient clinic on 09/09/18 due to hypotension, dizziness, and abdominal pain. Patient was previously in [facility] on August 29 and was transferred to [place] for dizziness, uncontrolled HTN, uncontrolled DM, and hyperkalemia. Patient has a history of CKD, hyperlipidemia, COPD, obesity, CHRISTEN, CAD with CHF and was discharged from [facility] on August 31. At that time patient was started on amlodipine 10mg, carvedilol 25mg BID, Clonidine 0.1mg BID, and metolazone 2.5mg Friday and . Metolazone was replaced with Lasix BID. Patient did have hyperkalemia during hospitalization which normalized with discontinuation of Aldactone and Vasotec. Hospital course: Patient's initial course prior to placing in [facility] bed was going well. She was given laxative early on in admission and she had multiple stools with improvement in abdominal distention. She had x-ray imaging of the abdomen done which demonstrated significant gastric and small bowel distention. Patient did improve clinically in this regard. She did previously have an ONEIDA likely from recent contrast media injury. IV fluids were given on admit and her BUN and creatinine trended down nicely. BP has improved overall and patient had been taking Amlodipine 5mg daily and enalapril 10mg BID. Blood sugar control has improved. Patient was transferred to SNF here at [facility] for medication management, ambulation, rebuilding her strength, monitoring her blood sugars and adjusting medications. During the feed preparation operator hours of 09/20/18 the patient began to complain of sudden onset of severe abdominal pain, with nausea, vomiting, and frequent diarrhea. CBC done at that time with increased WBC at 17.75 however normal neutrophil count. Lipase mildly increased at 432. Na-134, K+4.8, BUN-43, Creatinine 1.28. GFR 41. Abdominal assessment with a significant acutely tender abdomen primarily to the LLQ and LUQ but generalized tenderness noted, with patient guarding of abdomen. Patient afebrile. She had been having normal, regular BM prior to onset of acute abdominal pain. IV zofran given with limited relief initially. Maalox given. Patient was given a 250mL NS bolus x2 and started on maintenance fluid. CT of the abdomen pelvis done showing "large distal duodenal diverticulum, of uncertain clinical significance, fluid-filled but non-obstructed large and small bowel, possible enteritis. Also of note- left adrenal lesion with the appearance of a benign myelolipoma, without hemorrhage. Small fat containing abdominal wall hernia." Back Pain Score (Numeric/FACES): 2 - Related Data Allergies/Adverse Reactions: Allergies Allergy/AdvReac Type Severity Reaction Status Date / Time blue dye Allergy Other Verified 09/10/18 15:47 fenofibrate [From Tricor] Allergy Other Verified 09/10/18 15:47 simvastatin Allergy Other Verified 09/10/18 15:47 Zncdwrv-Jrl-Aje Reductase Allergy Cannot Verified 09/10/18 15:50 Inhibitor Remember Home Medications: Home Meds Acetaminophen with Codeine [Acetaminophen-Cod #3] 1 - 2 tab PO Q6H PRN 08/07/18 [History] Carvedilol 25 mg PO BIDAC 08/07/18 [History] Citalopram [Citalopram HBr] 20 mg PO DAILY 08/07/18 [History] Lancets 1 each MC TID 08/07/18 [History] [facility]-3 Fatty Acids/DHA/EPA [Ovega-3 Softgel] 1,000 mg PO BID 08/07/18 [History] Aspirin 81 mg PO DAILY 09/10/18 [History] Calcium Carbonate/Vitamin D3 [Calcium 600-Vit D3 400 Tablet] 1 each PO BIDMEALS 09/10/18 [History] Ezetimibe 1 tab PO DAILY 09/10/18 [History] Iron Polysaccharide Complex [Poly-Iron] 1 cap PO ACBREAKFAST 09/10/18 [History] Latanoprost 1 drop OP BEDTIME 09/10/18 [History] Niacinamide [Niacin] 500 mg PO TID 09/10/18 [History] Nitroglycerin [Nitrostat] 0.4 mg SL ASDIRECTED 09/10/18 [History] QUEtiapine [SEROquel] 0.5 tab PO BEDTIME 09/10/18 [History] Acetaminophen [Tylenol Arthritis] 650 mg PO Q8HR 09/20/18 [History] Alum Hydrox/Mag Hydrox/Simeth [Mag-Al Plus] 30 ml PO QID PRN 09/20/18 [History] [place]/Min Oil/Kisha/Wool Alcoh [Eucerin Creme] 1 applic TOP TID PRN 09/20/18 [ History] Sennosides/Docusate Sodium [Senna-Docusate Sodium Tablet] 4 tab PO BID 09/20/18 [History] Insuln Asp Prot/Insulin Aspart [NovoLOG Mix 70-30] 17 unit SUBCUT BIDMEALS #3 pen 09/22/18 [Rx] amLODIPine [Norvasc] 10 mg PO DAILY #90 tablet 09/22/18 [Rx] cloNIDine HCl [Clonidine HCl ER] 0.1 mg PO BID #60 tab.er.12h 09/22/18 [Rx] Past Medical History HEENT History: Reports: Glaucoma, Hard of Hearing, Impaired Vision, Sinusitis, Other (See Below) Other HEENT History: Dyphasia, dizziness Cardiovascular History: Reports: CAD, Heart Failure, High Cholesterol, Hypertension Respiratory History: Reports: COPD, Other (See Below) Other Respiratory History: Lung nodule. Gastrointestinal History: Reports: Chronic Constipation, GERD Genitourinary History: Reports: Acute Renal Failure, Chronic Renal Insuffiency, Other (See Below) Other Genitourinary History: Chronic kidney disease, abdominal wall hernia SOLE LEVELER History: Reports: Other (See Below) Other OB/BYN History: Ovarian Cyst Musculoskeletal History: Reports: Back Pain, Chronic, Other (See Below) Other Musculoskeletal History: History of vertebral fracture, abdominal wall hernia Neurological History: Reports: Neuropathy, Diabetic, Other (See Below) Other Neuro History: frontotemporal lobar degeneration/Pick disease pattern Psychiatric History: Reports: Addiction, Anxiety, Dementia, Depression, Other ( See Below) Other Psychiatric History: Somnolence. Endocrine/Metabolic History: Reports: Diabetes, Type II, IDDM, Obesity/BMI 30+, Other (See Below) Other Endocrine/Metabolic History: Pancreatitis. Goiter Hematologic History: Reports: Anemia, Iron Deficiency, Other (See Below) Other Hematologic History: Hyperkalemia, Hyponatremia, iron deficiency, lactic acidemia Immunologic History: Reports: None Oncologic (Cancer) History: Reports: None Dermatologic History: Reports: None - Infectious Disease History Infectious Disease History: Reports: Chicken Pox, Measles, Mumps - Past Surgical History Head Surgeries/Procedures: Reports: None HEENT Surgical History: Reports: Adenoidectomy, Cataract Surgery, Tonsillectomy Other HEENT Surgeries/Procedures: left ear surgery Cardiovascular Surgical History: Reports: None GI Surgical History: Reports: Cholecystectomy, Colonoscopy Female Surgical History: Reports: Tubal Ligation Oncologic Surgical History: Reports: None Dermatological Surgical History: Reports: None Social & Family History - Family History Family Medical History: Unobtainable HEENT: Reports: Cataract, Glaucoma, Hearing Impairment, Impaired Vision, Otitis Media, Sinusitis Cardiac: Reports: Pacemaker, Prior Cardiac Arrest Other Cardiac Family History: pt states "my brothers had open heart surgery, and my mother had a pacemaker" Respiratory: Reports: COPD, Sleep Apnea GI: Reports: Chronic Constipation, GERD, Irritable Bowel Syndrome : Reports: Diabetic Nephropathy OBGYN: Reports: None Other OBGYN Family History: cyst on R ovary Musculoskeletal: Reports: None Neurological: Reports: Dementia, Migraines, Neuropathy, Diabetic Psychiatric: Reports: Anxiety, Autism, Depression Endocrine/Metabolic: Reports: Diabetes, type II, Vitamin D Deficiency Hematologic: Reports: Anemia Immunologic: Reports: None Dermatologic: Reports: None Oncologic: Reports: None - Tobacco Use Smoking Status *Q: Never Smoker - Caffeine Use Caffeine Use: Reports: Coffee Caffeine Use Comment: Coffee every day- one pot of coffee. Pop occasionally. - Recreational Drug Use Recreational Drug Use: No H&P Review of Systems - Review of Systems: Review Of Systems: See Below General: Reports: Weakness, Fatigue. Denies: Fever, Chills HEENT: Reports: No Symptoms Pulmonary: Denies: Shortness of Breath, Wheezing, Cough, Sputum Cardiovascular: Denies: Chest Pain, Palpitations, Dyspnea on Exertion, Edema Gastrointestinal: Reports: Abdominal Pain, Diarrhea, Nausea, Vomiting Genitourinary: Reports: No Symptoms Musculoskeletal: Reports: No Symptoms Skin: Reports: No Symptoms Psychiatric: Reports: Confusion (at times) Neurological: Reports: No Symptoms Exam - Exam Exam: See Below - Vital Signs Vital Signs: Last Vital Signs Temp 97.8 F 09/20/18 14:10 Pulse 62 09/20/18 14:10 Resp 16 09/20/18 14:10 BP 156/71 H 09/20/18 14:10 Pulse Ox 94 L 09/20/18 14:10 Weight: 192 lb 8 oz - Exam General: Alert, Oriented HEENT: Conjunctiva Clear Neck: Supple. No: JVD Lungs: Clear to Auscultation, Normal Respiratory Effort Cardiovascular: Regular Rate, Regular Rhythm GI/Abdominal Exam: Normal Bowel Sounds, Distended, Guarding, Tender (Female) Exam: Deferred Rectal (Female) Exam: Deferred Back Exam: Normal Inspection Extremities: Normal Inspection, No Pedal Edema Skin: Warm, Dry, Intact Neuro Extensive - Mental Status: Alert, Oriented x3 Neuro Extensive - Motor, Sensory, Reflexes: CN II-XII Intact Psychiatric: Alert - Patient Data Result Diagrams: 09/21/18 07:30 09/22/18 08:50 Problem List Initiated/Reviewed/Updated: Yes Orders Last 24hrs: Active Orders 24 hr Category Date Time Status Patient Status [ADT] Routine ADT 09/20/18 16:04 Active Oxygen Therapy [RC] PRN Care 09/20/18 16:04 Active VTE/DVT Education [RC] PER UNIT ROUTINE Care 09/20/18 16:04 Active Vital Signs [RC] Q4H Care 09/20/18 16:04 Active ADA Diabetic [[place] [employer] Diet] [DIET Diet 09/20/18 Dinner Active ] Sodium Chloride 0.9% [Normal Saline] 1,000 ml Med 09/20/18 16:04 Active IV ASDIRECTED Sodium Chloride 0.9% [Saline Flush] Med 09/20/18 16:04 Active 10 ml FLUSH Q8HR PRN Sodium Polystyrene Sulfonate [Kayexalate] Med 09/20/18 16:00 Active 15 gm PO BID amLODIPine [Norvasc] Med 09/21/18 09:00 Active 10 mg PO DAILY Saline Lock Insert [OM.PC] Routine Oth 09/20/18 16:04 Ordered Resuscitation Status Routine Resus Stat 09/20/18 15:48 Ordered Medication Orders Amlodipine Besylate (Norvasc) 10 mg PO DAILY JOHNNY Sodium Chloride (Normal Saline) 1,000 mls @ 100 mls/hr IV ASDIRECTED JOHNNY Sodium Chloride (Saline Flush) 10 ml FLUSH Q8HR PRN PRN Reason: keep vein open Sodium Polystyrene Sulfonate (Kayexalate) 15 gm PO BID JOHNNY Last Admin: 09/20/18 16:16 Dose: 15 gm Assessment/Plan Comment:: History Summary: Obdulia is a 73 year old female who was initially admitted to the hospital from an outpatient clinic on 09/09/18 due to hypotension, dizziness, and abdominal pain. Patient was previously in [facility] on August 29 and was transferred to [place] for dizziness, uncontrolled HTN, uncontrolled DM, and hyperkalemia. Patient has a history of CKD, hyperlipidemia, COPD, obesity, CHRISTEN, CAD with CHF and was discharged from [facility] on August 31. At that time patient was started on amlodipine 10mg, carvedilol 25mg BID, Clonidine 0.1mg BID, and metolazone 2.5mg Friday and . Metolazone was replaced with Lasix BID. Patient did have hyperkalemia during hospitalization which normalized with discontinuation of Aldactone and Vasotec. Hospital course: Patient's initial course prior to placing in [facility] was going well. She was given laxative early on in admission and she had multiple stools with improvement in abdominal distention. She had x-ray imaging of the abdomen done which demonstrated significant gastric and small bowel distention. Patient did improve clinically in this regard. She did previously have an ONEIDA likely from recent contrast media injury. IV fluids were given on admit and her BUN and creatinine trended down nicely. BP has improved overall and patient had been taking Amlodipine 5mg daily and enalapril 10mg BID. Blood sugar control has improved. Patient was transferred to SNF here at [facility] for medication management, ambulation, rebuilding her strength, monitoring her blood sugars and adjusting medications. During the feed preparation operator hours of 09/20/18 the patient began to complain of sudden onset of severe abdominal pain, with nausea, vomiting, and frequent diarrhea. CBC done at that time with increased WBC at 17.75 however normal neutrophil count. Lipase mildly increased at 432. Na-134, K+4.8, BUN-43, Creatinine 1.28. GFR 41. Abdominal assessment with a significant acutely tender abdomen primarily to the LLQ and LUQ but generalized tenderness noted, with patient guarding of abdomen. Patient afebrile. She had been having normal, regular BM prior to onset of acute abdominal pain. IV zofran given with limited relief initially. Maalox given. Patient was given a 250mL NS bolus x2 and started on maintenance fluid. CT of the abdomen pelvis done showing "large distal duodenal diverticulum, of uncertain clinical significance, fluid-filled but non-obstructed large and small bowel, possible enteritis. Also of note- left adrenal lesion with the appearance of a benign myelolipoma, without hemorrhage. Small fat containing abdominal wall hernia." Repeat labwork done in the AM with mild improvement in renal function with BUN 40, creatinine 1.19, sodium 124. Potassium noted to be elevated at 6.0. recheck potassium done and 6.0. Given hyperkalemia and concerns for acute on chronic kidney injury patient switched from SNF to Inpatient status. Hospital Problems: #Colitis, mild pancreatitis- Mild continued nausea. Continue with Zofran PRN. Abdominal pain is improved although quite tender to palpation. #Hyperkalemia- Will proceed with kaexylate x2 doses with recheck in AM. On telemetry. #Hypertension- discontinue enalapril given hyperkalemia. Will increased amlodipine. Continue on coreg BID. Will start clonidine 0.1mg BID. #Acute kidney injury- continue with IV therapy. BNP done today given underlying CHF and normal at 17. chest x-ray done with cardiomegaly without acute exacerbation. Recheck renal function in the AM Chronic conditions- #CAD- On ASA therapy #CHF- BNP 17 #HLD- intolerant to statins. On ezetimibe #LUZ MARIA- On Niferex #DM- Novolog 70/30 BID #Constipation- on Senna- will hold given current diarrhea. #CKD #Depression and Anxiety- Celexa #Hyponatremia- FEN: ADA, low potassium, low sodium diet. IV fluids at 100ml/hr. Daily weights. Strict I/O. Monitor for fluid overload. Disposition: Switch from SNF to inpatient status. Start telemetry monitoring given Hyperkalemia. Re-evaluate on rounds tomorrow.
[2018-09-20] MEDS: Sodium Chloride 0.9% 1,000 ML IV SCH (16:56)
[2018-09-20] MEDS ORDERED: Aluminum Hydroxide/Magnesium Hydroxide/Simethicone Susp 30 ML Cup PO PRN (17:44)
[2018-09-20] MEDS: Insuln Aspart Prot/Insulin Aspart 100 Units/ML 3 ML FlexPen SUBCUT SCH (18:19)
[2018-09-20] MEDS: Carvedilol 12.5 MG Tab PO SCH (18:19)
[2018-09-20] MEDS: cloNIDine 0.1 MG Tab PO SCH (21:43)
[2018-09-20] MEDS: Acetaminophen 650 MG Tab.ER PO SCH (21:44)
[2018-09-20] MEDS: QUEtiapine 25 MG Tab PO SCH (21:44)
[2018-09-20] MEDS: Latanoprost 0.005% Ophth Soln 2.5 ML Bottle EYERT SCH (21:45)
[2018-09-21] MEDS ORDERED: Melatonin 3 MG Tab PO PRN (00:25)
[2018-09-21] MEDS: Acetaminophen 650 MG Tab.ER PO SCH ×3 (06:45→22:15)
[2018-09-21] MEDS: Carvedilol 12.5 MG Tab PO SCH ×2 (06:46→18:12)
[2018-09-21 08:13] LABS: ANION GAP 13.8 mmol/L (5-15); CHLORIDE,CL 110 mmol/L (98-115); SODIUM,NA 140 mmol/L (136-145)
[2018-09-21] MEDS: Insuln Aspart Prot/Insulin Aspart 100 Units/ML 3 ML FlexPen SUBCUT SCH ×2 (08:16→18:12)
[2018-09-21] MEDS: Aspirin 81 MG Tab.Chew PO SCH (08:16)
[2018-09-21] MEDS: cloNIDine 0.1 MG Tab PO SCH ×2 (08:16→22:14)
[2018-09-21] MEDS: Ezetimibe 10 MG Tab PO SCH (08:16)
[2018-09-21] MEDS: Citalopram 20 MG Tab PO SCH (08:16)
[2018-09-21] MEDS: amLODIPine 5 MG Tab PO SCH (08:17)
[2018-09-21] MEDS: Sodium Polystyrene Sulfonate 15 GM/60 ML Susp 60 ML Bot PO SCH ×2 (08:17→22:13)
--- NOTE | 2018-09-21 10:26 | PCM.PN ---
- General Info Date of Service: 09/21/18 Functional Status: Reports: Pain Controlled, Tolerating Diet. Denies: New Symptoms - Review of Systems General: Reports: No Symptoms HEENT: Reports: No Symptoms Pulmonary: Reports: No Symptoms Cardiovascular: Reports: No Symptoms Gastrointestinal: Reports: Abdominal Pain (mild LUQ abd pain) Genitourinary: Reports: No Symptoms Musculoskeletal: Reports: No Symptoms Skin: Reports: No Symptoms Neurological: Reports: No Symptoms Psychiatric: Reports: No Symptoms - Patient Data Vitals - Most Recent: Last Vital Signs Temp 98.4 F 09/21/18 07:00 Pulse 64 09/21/18 07:00 Resp 20 09/21/18 07:00 BP 173/64 H 09/21/18 08:17 Pulse Ox 93 L 09/21/18 07:00 Weight - Most Recent: 191 lb 12.8 oz I&O - Last 24 Hours: Intake & Output 09/20/18 09/21/18 09/21/18 22:59 06:59 14:59 Intake Total 560 1930 Output Total 700 1800 Balance -140 130 Lab Results Last 24 Hours: Laboratory Results - last 24 hr 09/20/18 09/21/18 09/21/18 Range/Units 17:46 07:30 07:30 WBC 8.96 (5.00-10.00) 10^3/uL RBC 3.42 L (3.80-5.50) 10^6/uL Hgb 9.9 L (12.0-16.0) g/dL Hct 30.2 L (37.0-47.0) % MCV 88.3 D (82.0-92.0) fL MCH 28.9 (27.0-31.0) pg MCHC 32.8 (32.0-36.0) g/dL RDW 13.6 (11.5-14.5) % Plt Count 187 (150-400) 10^3/uL MPV 8.6 (7.4-10.4) fL Immature Gran % (Auto) 0.1 (0.0-5.0) % Neut % (Auto) 58.5 (50.0-70.0) % Lymph % (Auto) 33.9 (20.0-40.0) % [place] % (Auto) 4.4 (2.0-8.0) % Eos % (Auto) 2.8 (1.0-3.0) % Baso % (Auto) 0.3 (0.0-1.0) % Immature Gran # (Auto) 0.01 (0.00-0.50) 10^3/uL Neut # (Auto) 5.24 (2.50-7.00) 10^3/uL Lymph # (Auto) 3.04 (1.00-4.00) 10^3/uL [place] # (Auto) 0.39 (0.10-0.80) 10^3/uL Eos # (Auto) 0.25 (0.10-0.30) 10^3/uL Baso # (Auto) 0.03 (0.00-0.10) 10^3/uL Sodium 140 (136-145) mmol/L Potassium 5.3 (3.3-5.3) mmol/L Chloride 110 (98-115) mmol/L Carbon Dioxide 21.5 (21.0-32.0) mmol/L Anion Gap 13.8 (5-15) mmol/L BUN 27 H (6-25) mg/dL Creatinine 0.89 (0.51-1.17) mg/dL Est Cr Clr Drug Dosing 45.18 mL/min Estimated GFR (MDRD) > 60 mL/min Glucose 101 H (75 - 99) mg/dL POC Glucose 110 H (74-106) mg/dl Calcium 8.3 L (8.7-10.3) mg/dL Total Bilirubin 0.1 L (0.2-1.0) mg/dL AST 16 (15-37) U/L ALT 16 (12-78) U/L Alkaline Phosphatase 63 (46-116) IU/L Total Protein 5.8 L (6.4-8.2) g/dL Albumin 2.85 L (3.00-4.80) g/dL 09/21/18 Range/Units 07:43 WBC (5.00-10.00) 10^3/uL RBC (3.80-5.50) 10^6/uL Hgb (12.0-16.0) g/dL Hct (37.0-47.0) % MCV (82.0-92.0) fL MCH (27.0-31.0) pg MCHC (32.0-36.0) g/dL RDW (11.5-14.5) % Plt Count (150-400) 10^3/uL MPV (7.4-10.4) fL Immature Gran % (Auto) (0.0-5.0) % Neut % (Auto) (50.0-70.0) % Lymph % (Auto) (20.0-40.0) % [place] % (Auto) (2.0-8.0) % Eos % (Auto) (1.0-3.0) % Baso % (Auto) (0.0-1.0) % Immature Gran # (Auto) (0.00-0.50) 10^3/uL Neut # (Auto) (2.50-7.00) 10^3/uL Lymph # (Auto) (1.00-4.00) 10^3/uL [place] # (Auto) (0.10-0.80) 10^3/uL Eos # (Auto) (0.10-0.30) 10^3/uL Baso # (Auto) (0.00-0.10) 10^3/uL Sodium (136-145) mmol/L Potassium (3.3-5.3) mmol/L Chloride (98-115) mmol/L Carbon Dioxide (21.0-32.0) mmol/L Anion Gap (5-15) mmol/L BUN (6-25) mg/dL Creatinine (0.51-1.17) mg/dL Est Cr Clr Drug Dosing mL/min Estimated GFR (MDRD) mL/min Glucose (75 - 99) mg/dL POC Glucose 102 (74-106) mg/dl Calcium (8.7-10.3) mg/dL Total Bilirubin (0.2-1.0) mg/dL AST (15-37) U/L ALT (12-78) U/L Alkaline Phosphatase (46-116) IU/L Total Protein (6.4-8.2) g/dL Albumin (3.00-4.80) g/dL Med Orders - Current: Current Medications Acetaminophen (Tylenol Arthritis Pain) 650 mg PO Q8HR JOHNNY Last Admin: 09/21/18 06:45 Dose: 650 mg Al Hydroxide/Mg Hydroxide (Mag-Al Plus) 30 ml PO QID PRN PRN Reason: Heartburn Amlodipine Besylate (Norvasc) 10 mg PO DAILY [facility] Last Admin: 09/21/18 08:17 Dose: 10 mg Aspirin (Aspirin) 81 mg PO DAILY [facility] Last Admin: 09/21/18 08:16 Dose: 81 mg Carvedilol (Coreg) 25 mg PO BIDAC [facility] Last Admin: 09/21/18 06:46 Dose: 25 mg Citalopram Hydrobromide (Celexa) 20 mg PO DAILY [facility] Last Admin: 09/21/18 08:16 Dose: 20 mg Clonidine HCl (Catapres) 0.1 mg PO Q12H [facility] Last Admin: 09/21/18 08:16 Dose: 0.1 mg Ezetimibe (Zetia) 10 mg PO DAILY [facility] Last Admin: 09/21/18 08:16 Dose: 10 mg Sodium Chloride (Normal Saline) 1,000 mls @ 100 mls/hr IV ASDIRECTED [facility] Last Admin: 09/20/18 16:56 Dose: 100 mls/hr Insulin Aspart (Novolog Mix 70-30) 17 unit SUBCUT BIDMEALS [facility] Last Admin: 09/21/18 08:16 Dose: 17 unit Latanoprost (Xalatan 0.005% [facility] Sol) 0 ml EYERT BEDTIME [facility] Last Admin: 09/20/18 21:45 Dose: 1 drop Melatonin (Melatonin) 3 mg PO BEDTIME PRN PRN Reason: Insomnia Quetiapine Fumarate (Seroquel) 12.5 mg PO BEDTIME [facility] Last Admin: 09/20/18 21:44 Dose: 12.5 mg Sodium Chloride (Saline Flush) 10 ml FLUSH Q8HR PRN PRN Reason: keep vein open Sodium Polystyrene Sulfonate (Kayexalate) 15 gm PO BID [facility] Last Admin: 09/21/18 08:17 Dose: 15 gm - Exam Quality Assessment: No: Supplemental Oxygen General: Alert Neck: Supple Lungs: Clear to Auscultation, Normal Respiratory Effort Cardiovascular: Regular Rate, Regular Rhythm GI/Abdominal Exam: Other (increased bowel tones, slight tenderness ). No: Distended (Female) Exam: Deferred Back Exam: No: CVA Tenderness (L), CVA Tenderness (R) Neurological: No New Focal Deficit Psy/Mental Status: Alert, Normal Affect, Normal Mood - Problem List Review Problem List Initiated/Reviewed/Updated: Yes - Plan Plan:: history Obdulia is a 73 year old female who was initially admitted to the hospital from an outpatient clinic on 09/09/18 due to hypotension, dizziness, and abdominal pain. Patient was previously in [facility] on August 29 and was transferred to [place] for dizziness, uncontrolled HTN, uncontrolled DM, and hyperkalemia. Patient has a history of CKD, hyperlipidemia, COPD, obesity, CHRISTEN, CAD with CHF and was discharged from [facility] on August 31. At that time patient was started on amlodipine 10mg, carvedilol 25mg BID, Clonidine 0.1mg BID, and metolazone 2.5mg Friday and . Metolazone was replaced with Lasix BID. Patient did have hyperkalemia during hospitalization which normalized with discontinuation of Aldactone and Vasotec. During the customer service assistant hours of 09/20/18 the patient began to complain of sudden onset of severe abdominal pain, with nausea, vomiting, and frequent diarrhea. CBC done at that time with increased WBC at 17.75 however normal neutrophil count. Lipase mildly increased at 432. Na-134, K+4.8, BUN-43, Creatinine 1.28. GFR 41. Abdominal assessment with a significantly acutely tender abdomen primarily to the LLQ and LUQ but generalized tenderness noted, with patient guarding of abdomen. Patient afebrile. She had been having normal, regular BM prior to onset of acute tenderness. IV zofran given with limited relief initially. Maalox given. Patient was given a 250mL NS bolus x2 and started on maintenance fluid. CT of the abdomen pelvis done showing "large distal duodenal diverticulum, of uncerain clinical significance, fluid-filled but non-obstructed large and small bowel, possible enteritis. Also of note- left adrenal lesion with the appearance of a beniggn myelolipoma, without hemorrhage. Small fat containing abdominal wall hernia." Hospital Problems: #Colitis, mild pancreatitis- Mild continued nausea. Continue with Zofran PRN. Abdominal pain is improved. #Hyperkalemia- improved, recheck in am. #Hypertension- Her enalapril was dc'd given hyperkalemia. icreased amlodipine. Continue on coreg BID. started on clonidine 0.1mg BID. #Acute kidney injury- improved. FEN: ADA, low potassium, low sodium diet. IV fluids at 100ml/hr. Daily weights. Strict I/O. Monitor for fluid overload. Anticipate Discharge tomorrow with home health and close followup
[2018-09-21] MEDS: Sodium Chloride 0.9% 1,000 ML IV SCH ×2 (10:30→20:18)
[2018-09-21] MEDS: QUEtiapine 25 MG Tab PO SCH (22:14)
[2018-09-21] MEDS: Latanoprost 0.005% Ophth Soln 2.5 ML Bottle EYERT SCH (22:16)
[2018-09-22] MEDS: Acetaminophen 650 MG Tab.ER PO SCH (06:14)
[2018-09-22] MEDS: Sodium Chloride 0.9% 1,000 ML IV SCH (06:35)
[2018-09-22] MEDS: Carvedilol 12.5 MG Tab PO SCH (07:50)
[2018-09-22] MEDS: cloNIDine 0.1 MG Tab PO SCH (08:06)
[2018-09-22] MEDS: Sodium Polystyrene Sulfonate 15 GM/60 ML Susp 60 ML Bot PO SCH (08:06)
[2018-09-22] MEDS: amLODIPine 5 MG Tab PO SCH (08:07)
[2018-09-22] MEDS: Insuln Aspart Prot/Insulin Aspart 100 Units/ML 3 ML FlexPen SUBCUT SCH (08:07)
[2018-09-22] MEDS: Aspirin 81 MG Tab.Chew PO SCH (08:07)
[2018-09-22] MEDS: Citalopram 20 MG Tab PO SCH (08:07)
[2018-09-22] MEDS: Ezetimibe 10 MG Tab PO SCH (08:07)
[2018-09-22 09:15] LABS: ANION GAP 15.9 mmol/L (5-15); CHLORIDE,CL 108 mmol/L (98-115); SODIUM,NA 142 mmol/L (136-145)
--- NOTE | 2018-09-22 10:06 | PCM.DCSUM1 ---
Discharge Summary - Hospital Course Diagnosis: Stroke: No - Discharge Data Discharge Date: 09/22/18 Discharge Disposition: Home, Self-Care 01 Condition: Good - Patient Instructions Diet: Drink 8-10+ Glasses/Day, Diabetic Diet Diet, Other: low potassium diet Activity: As Tolerated Driving: May Drive Today Showering/Bathing: May Shower Notify Provider of: Fever, Increased Pain, Nausea and/or Vomiting - Discharge Plan *PRESCRIPTION DRUG MONITORING PROGRAM REVIEWED*: Not Applicable *COPY OF PRESCRIPTION DRUG MONITORING REPORT IN PATIENT ELIZABETH: Not Applicable Prescriptions/Med Rec: amLODIPine [Norvasc] 10 mg PO DAILY #90 tablet cloNIDine HCl [Clonidine HCl ER] 0.1 mg PO BID #60 tab.er.12h Insuln Asp Prot/Insulin Aspart [NovoLOG Mix 70-30] 17 unit SUBCUT BIDMEALS #3 pen Home Medications: Home Meds Acetaminophen with Codeine [Acetaminophen-Cod #3] 1 - 2 tab PO Q6H PRN 08/07/18 [History] Carvedilol 25 mg PO BIDAC 08/07/18 [History] Citalopram [Citalopram HBr] 20 mg PO DAILY 08/07/18 [History] Lancets 1 each MC TID 08/07/18 [History] [place]-3 Fatty Acids/DHA/EPA [Ovega-3 Softgel] 1,000 mg PO BID 08/07/18 [History] Aspirin 81 mg PO DAILY 09/10/18 [History] Calcium Carbonate/Vitamin D3 [Calcium 600-Vit D3 400 Tablet] 1 each PO BIDMEALS 09/10/18 [History] Ezetimibe 1 tab PO DAILY 09/10/18 [History] Iron Polysaccharide Complex [Poly-Iron] 1 cap PO ACBREAKFAST 09/10/18 [History] Latanoprost 1 drop OP BEDTIME 09/10/18 [History] Niacinamide [Niacin] 500 mg PO TID 09/10/18 [History] Nitroglycerin [Nitrostat] 0.4 mg SL ASDIRECTED 09/10/18 [History] QUEtiapine [SEROquel] 0.5 tab PO BEDTIME 09/10/18 [History] Acetaminophen [Tylenol Arthritis] 650 mg PO Q8HR 09/20/18 [History] Alum Hydrox/Mag Hydrox/Simeth [Mag-Al Plus] 30 ml PO QID PRN 09/20/18 [History] [place]/Min Oil/Kisha/Wool Alcoh [Eucerin Creme] 1 applic TOP TID PRN 09/20/18 [ History] Sennosides/Docusate Sodium [Senna-Docusate Sodium Tablet] 4 tab PO BID 09/20/18 [History] Insuln Asp Prot/Insulin Aspart [NovoLOG Mix 70-30] 17 unit SUBCUT BIDMEALS #3 pen 09/22/18 [Rx] amLODIPine [Norvasc] 10 mg PO DAILY #90 tablet 09/22/18 [Rx] cloNIDine HCl [Clonidine HCl ER] 0.1 mg PO BID #60 tab.er.12h 09/22/18 [Rx] Referrals: Timmy Bateman NP [Nurse Practitioner] - (or anybody of her choice in [place] or [place] next week. ) - Discharge Summary/Plan Comment DC Time >30 min.: Yes Discharge Summary/Plan Comment: Final diagnosis Colitis, mild pancreatitis- improved Hyperkalemia- resolved Hypertension- improved Acute kidney injury, improved History 73 year old female who was initially admitted to the hospital from an outpatient clinic on 09/09/18 due to hypotension, dizziness, and abdominal pain. Patient was previously in [facility] on August 29 and was transferred to [place] for dizziness, uncontrolled HTN, uncontrolled DM, and hyperkalemia. Patient has a history of CKD, hyperlipidemia, COPD, obesity, CHRISTEN, CAD with CHF and was discharged from [facility] on August 31. At that time patient was started on amlodipine 10mg, carvedilol 25mg BID, Clonidine 0.1mg BID, and metolazone 2.5mg Friday and . Metolazone was replaced with Lasix BID. Patient did have hyperkalemia during hospitalization which normalized with discontinuation of Aldactone and Vasotec. Hospital course. Patient's initial course prior to placing in swing bed was going well. She was given laxative early on in admission and she had multiple stools with improvement in abdominal distention. She had x-ray imaging of the abdomen done which demonstrated significant gastric and small bowel distention. Patient did improve clinically in this regard. She did previously have an ONEIDA likely from recent contrast media injury. IV fluids were given on admit and her BUN and creatinine trended down nicely. BP has improved overall and patient had been taking Amlodipine 5mg daily and enalapril 10mg BID. Blood sugar control has improved. Patient was transferred to SNF here at [facility] for medication management, ambulation, rebuilding her strength, monitoring her blood sugars and adjusting medications however she started having some severe abdominal pain , with nausea, vomiting, and frequent diarrhea on September 20 that she described as sudden in onset. Her CBC done at that time with increased WBC at 17.75 however normal neutrophil count. Lipase mildly increased at 432. Na-134, K+4.8 , BUN-43, Creatinine 1.28. GFR 41. Abdominal assessment with a significantly acutely tender abdomen primarily to the LLQ and LUQ but generalized tenderness noted, with patient guarding of abdomen. Patient was afebrile. She had been having normal, regular BM prior to onset of acute tenderness. IV zofran given with limited relief initially. Maalox given. Patient was given a 250mL NS bolus x2 and started on maintenance fluid. CT of the abdomen pelvis done showing "large distal duodenal diverticulum, of uncerain clinical significance, fluid- filled but non-obstructed large and small bowel, possible enteritis. Also of note- left adrenal lesion with the appearance of a beniggn myelolipoma, without hemorrhage. Small fat containing abdominal wall hernia." Repeat labwork done in the AM with mild improvement in renal function with BUN 40, creatinine 1.19, sodium 124. Potassium noted to be elevated at 6.0. This did normalized with administration of Kayexal Telemetry did not show any cortical disturbance. She was also changed back to Inpatient status. We maintained ADA, low potassium, low sodium diet. IV fluids and she felt much improved and was ready for discharge to home health. medication changes/adjustments tim discharge --Enalapril discontinued due to hyperkalemia --Added clonidine 0.1 mg by mouth twice a day --Increased Norvasc to 10 mg by mouth daily disposition this is a face-to examination and the patient will be discharged to home health , physical therapy and occupational therapy. patient is high risk for potential readmission 2/2 her diabetes and insulin management along with her strength and endurance and chronic medical comorbidities. please develop an in-home program therapyt for her. She is homebound due to her limited decrease and indurance and with her unsteady gait. - Patient Data Vitals - Most Recent: Last Vital Signs Temp 99.1 F 09/22/18 06:24 Pulse 67 09/22/18 07:50 Resp 20 09/22/18 06:24 BP 179/73 H 09/22/18 08:07 Pulse Ox 92 L 09/22/18 06:24 Weight - Most Recent: 191 lb 12.8 oz I&O - Last 24 hours: Intake & Output 09/21/18 09/22/18 09/22/18 22:59 06:59 14:59 Intake Total 1118 805 Output Total 1000 Balance 1118 -195 Lab Results - Last 24 hrs: Laboratory Results - last 24 hr 09/21/18 09/21/18 09/22/18 Range/Units 11:32 16:55 06:17 Sodium (136-145) mmol/L Potassium (3.3-5.3) mmol/L Chloride (98-115) mmol/L Carbon Dioxide (21.0-32.0) mmol/L Anion Gap (5-15) mmol/L BUN (6-25) mg/dL Creatinine (0.51-1.17) mg/dL Est Cr Clr Drug Dosing mL/min Estimated GFR (MDRD) mL/min Glucose (75 - 99) mg/dL POC Glucose 156 H 188 H 84 (74-106) mg/dl Calcium (8.7-10.3) mg/dL 09/22/18 Range/Units 08:50 Sodium 142 (136-145) mmol/L Potassium 4.7 (3.3-5.3) mmol/L Chloride 108 (98-115) mmol/L Carbon Dioxide 22.8 (21.0-32.0) mmol/L Anion Gap 15.9 H (5-15) mmol/L BUN 17 (6-25) mg/dL Creatinine 0.72 (0.51-1.17) mg/dL Est Cr Clr Drug Dosing 55.85 mL/min Estimated GFR (MDRD) > 60 mL/min Glucose 213 H (75 - 99) mg/dL POC Glucose (74-106) mg/dl Calcium 8.3 L (8.7-10.3) mg/dL Med Orders - Current: Current Medications Acetaminophen (Tylenol Arthritis Pain) 650 mg PO Q8HR [facility] Last Admin: 09/22/18 06:14 Dose: 650 mg Al Hydroxide/Mg Hydroxide (Mag-Al Plus) 30 ml PO QID PRN PRN Reason: Heartburn Amlodipine Besylate (Norvasc) 10 mg PO DAILY [facility] Last Admin: 09/22/18 08:07 Dose: 10 mg Aspirin (Aspirin) 81 mg PO DAILY [facility] Last Admin: 09/22/18 08:07 Dose: 81 mg Carvedilol (Coreg) 25 mg PO BIDAC [facility] Last Admin: 09/22/18 07:50 Dose: 25 mg Citalopram Hydrobromide (Celexa) 20 mg PO DAILY [facility] Last Admin: 09/22/18 08:07 Dose: 20 mg Clonidine HCl (Catapres) 0.1 mg PO Q12H [facility] Last Admin: 09/22/18 08:06 Dose: 0.1 mg Ezetimibe (Zetia) 10 mg PO DAILY [facility] Last Admin: 09/22/18 08:07 Dose: 10 mg Sodium Chloride (Normal Saline) 1,000 mls @ 100 mls/hr IV ASDIRECTED [facility] Last Admin: 09/22/18 06:35 Dose: 100 mls/hr Insulin Aspart (Novolog Mix 70-30) 17 unit SUBCUT BIDMEALS [facility] Last Admin: 09/22/18 08:07 Dose: 17 unit Latanoprost (Xalatan 0.005% [facility] Soln) 0 ml EYERT BEDTIME [facility] Last Admin: 09/21/18 22:16 Dose: 1 drop Melatonin (Melatonin) 3 mg PO BEDTIME PRN PRN Reason: Insomnia Quetiapine Fumarate (Seroquel) 12.5 mg PO BEDTIME [facility] Last Admin: 09/21/18 22:14 Dose: 12.5 mg Sodium Chloride (Saline Flush) 10 ml FLUSH Q8HR PRN PRN Reason: keep vein open Sodium Polystyrene Sulfonate (Kayexalate) 15 gm PO BID [facility] Last Admin: 09/22/18 08:06 Dose: 15 gm
== END 2018-09-22 11:55 | disposition home or self-care (01) | DRG 682 ==
LOC: KA.MS 12:27
PROVIDERS: ADMIT Nurse Practitioner Family; ATTEND Nurse Practitioner Family
DX: N17.9 Acute kidney failure, unspecified (principal); K85.90 Acute pancreatitis without necrosis or infection, unspecified; I13.0 Hypertensive heart and chronic kidney disease with heart failure and stage 1 through stage 4 chronic kidney disease, or unspecified chronic kidney disease; E87.1 Hypo-osmolality and hyponatremia; E87.5 Hyperkalemia; K52.9 Noninfective gastroenteritis and colitis, unspecified; I12.9 Hypertensive chronic kidney disease with stage 1 through stage 4 chronic kidney disease, or unspecified chronic kidney disease; N18.9 Chronic kidney disease, unspecified; E78.5 Hyperlipidemia, unspecified; J44.9 Chronic obstructive pulmonary disease, unspecified; E66.9 Obesity, unspecified; I25.10 Atherosclerotic heart disease of native coronary artery without angina pectoris; H91.90 Unspecified hearing loss, unspecified ear; H54.7 Unspecified visual loss; E78.00 Pure hypercholesterolemia, unspecified; I50.9 Heart failure, unspecified; K59.09 Other constipation; K21.9 Gastro-esophageal reflux disease without esophagitis; G89.29 Other chronic pain; E11.42 Type 2 diabetes mellitus with diabetic polyneuropathy; E11.22 Type 2 diabetes mellitus with diabetic chronic kidney disease; F41.9 Anxiety disorder, unspecified; F03.90 Unspecified dementia, unspecified severity, without behavioral disturbance, psychotic disturbance, mood disturbance, and anxiety; F32.9 Major depressive disorder, single episode, unspecified; D50.9 Iron deficiency anemia, unspecified; Z79.82 Long term (current) use of aspirin; Z79.4 Long term (current) use of insulin; Z88.8 Allergy status to other drugs, medicaments and biological substances; Z91.041 Radiographic dye allergy status; Z98.49 Cataract extraction status, unspecified eye; Z90.49 Acquired absence of other specified parts of digestive tract; Z98.51 Tubal ligation status
CPT/HCPCS: 36415; 80048; 80053; 82962; 85025; A9270-GY; J1815-GY; J7030

== ENCOUNTER 2018-12-24 14:37 | Observation (INO) | payer MEDICARE, BC ==
--- NOTE | 2018-12-24 16:41 | CT ---
[id number] CT/CT Head WO IV EXAM: NONCONTRAST HEAD CT INDICATION: Altered mental status. COMPARISON: None. DISCUSSION: Mild to moderate generalized atrophy. Mild multifocal white matter hypoattenuation is nonspecific, but generally ascribed to chronic small vessel ischemia. No mass effect or midline shift. No acute hemorrhage or extra-axial fluid collection. No acute territorial infarct is identified. Possible surgical changes left mastoid air cells. There are few opacified right mastoid air cells. IMPRESSION: 1. No acute intracranial findings. Kyler Jasso MD 12/24/18 1640 Thank you for allowing us to participate in the care of your patient.
[2018-12-24] MEDS ORDERED: Insulin Aspart 100 Units/ML 3 ML Pen SUBCUT ONE ×2 (18:07→22:27)
[2018-12-24] MEDS: Insuln Aspart Prot/Insulin Aspart 100 Units/ML 3 ML FlexPen SUBCUT SCH (18:17)
[2018-12-24] MEDS ORDERED: Latanoprost 0.005% Ophth Soln 2.5 ML Bottle EYEBOTH SCH (21:00)
[2018-12-25] MEDS ORDERED: Acetaminophen 325 MG Tab PO PRN (01:14)
[2018-12-25 07:47] LABS: BARBITURATE SCREEN,URINE NEGATIVE (NEGATIVE); BENZODIAZEPINES SCREEN,URINE NEGATIVE (NEGATIVE); TCA SCREEN,URINE NEGATIVE (NEGATIVE); THC SCREEN,URINE 50 NG/ML NEGATIVE (NEGATIVE)
[2018-12-25] MEDS: Insuln Aspart Prot/Insulin Aspart 100 Units/ML 3 ML FlexPen SUBCUT SCH (08:05)
[2018-12-25] MEDS ORDERED: Aspirin 81 MG Tab.EC PO SCH (09:00)
[2018-12-25 09:32] LABS: ANION GAP 15.5 mmol/L (5-15)
--- NOTE | 2018-12-25 10:52 | PCM.DCSUM1 ---
Discharge Summary - Hospital Course Diagnosis: Stroke: No - Discharge Data Discharge Date: 12/25/18 Discharge Disposition: Home, W Home Health Agency 06 Condition: Good - Referral to Home Health Date of Face to Face Encounter: 12/25/18 Reason for Homebound Status: alt mental status, freq falls. Primary Care Physician: Malena Escobedo NP Skilled Need: medication set up. VS. Assess safety,. Assess of her mental status - Patient Summary/Data Consults: Consultations 12/24/18 14:48 Consult to Case Management/Cut Plug Packer [CONS] Routine 12/24/18 17:36 Consult to Case Management/Cut Plug Packer [CONS] Routine - Patient Instructions Diet: Usual Diet as Tolerated, Drink 8-10+ Glasses/Day Activity: As Tolerated Driving: Do Not Drive Showering/Bathing: May Shower Notify Provider of: Fever, Nausea and/or Vomiting Other/Special Instructions: Report any worsening confusion or falls. Home Health to set up medication. DO NOT DRIVE - Discharge Plan *PRESCRIPTION DRUG MONITORING PROGRAM REVIEWED*: Not Applicable *COPY OF PRESCRIPTION DRUG MONITORING REPORT IN PATIENT ELIZABETH: Not Applicable Home Medications: Home Meds Acetaminophen with Codeine [Acetaminophen-Cod #3] 1 - 2 tab PO Q6H PRN 08/07/18 [History] Carvedilol 25 mg PO BIDAC 08/07/18 [History] Citalopram [Citalopram HBr] 20 mg PO DAILY 08/07/18 [History] Lancets 1 each MC TID 08/07/18 [History] [place]-3 Fatty Acids/DHA/EPA [[place]-3 Softgel] 1,000 mg PO BID 08/07/18 [History] Aspirin 81 mg PO DAILY 09/10/18 [History] Calcium Carbonate/Vitamin D3 [Calcium 600-Vit D3 400 Tablet] 1 each PO BIDMEALS 09/10/18 [History] Ezetimibe 10 mg PO DAILY 09/10/18 [History] Iron Polysaccharide Complex [Poly-Iron] 150 mg PO ACBREAKFAST 09/10/18 [History] Latanoprost 1 drop EYEBOTH BEDTIME 09/10/18 [History] Niacinamide [Niacin] 500 mg PO BID 09/10/18 [History] Nitroglycerin [Nitrostat] 0.4 mg SL ASDIRECTED 09/10/18 [History] QUEtiapine [SEROquel] 12.5 tab PO BEDTIME 09/10/18 [History] Insuln Asp Prot/Insulin Aspart [NovoLOG Mix 70-30] 17 unit SUBCUT BIDMEALS #3 pen 09/22/18 [Rx] Referrals: Timmy Bateman, DATA REVIEW SPECIALIST [Nurse Practitioner] - 12/28/18 10:30 am (follow-up in [place]) - Discharge Summary/Plan Comment DC Time >30 min.: Yes Discharge Summary/Plan Comment: Final diagnosis Altered mental status, medication drug overuse Frequent falls, Chronic small vessel ischemic cerebral History summary Obdulia is a 73-year-old female was seen and evaluated by Malena Escobedo APRN the day of admission at [facility] and she had came in acutely due to mixing up her medications. Apparently the patient took 2 days worth her for her morning medications at some point during the night and when her brother checked on her today she was difficult to arouse and was still sleeping. She does have for medication set up independently in pill boxes . Although she does have mild altered mental status upon admission, she has no acute anxiety, diaphoresis or headache. I have been following Obdulia for several months, in which I had placed the patient in the hospital acutely for dizziness and hypotension and confusion and subsequently placed her in SNF at [facility] and she did quite well. I have been concerned about the patient with medication mixups in the past along with frequent falls and the need for more than home health nursing suggesting LTC however she has quite adamantly refused. Her family has been more vocal to me regarding long-term placement however they have been reticent in expressing their concerns and desires to the patient. CT of the brain July 2018 due to dizziness and giddiness which revealed some generalized cerebral and cortical atrophy along with evidence of chronic small vessel ischemic changes. She was admitted into observation mainly for monitoring due to her medication overuse such as non-benzo antipsychotics, beta maria luisa, and SSRI meds. Hospital course Uneventful, she did not sleep well, she had rather been home in her own bed, there were no concerning ECG or telemetry. Telemetry were removed before midnight. Improved in her altered mental status, vital signs are stable, mild WBC elevation however no leukocytosis or fever. EKG: SR no QTc ~430, urine toxicology was negative. Disposition She is refusing long-term care, will discharge with home health and close follow -up at the clinic. Pharmacy today we will set her up with either blister pill packs or refill her medicine containers. Only concern regarding patient's ability to care for herself at home due to frequent falls, ental status and medication mixups. Strongly recommend long-term care especially during the winter months. See her back next week for follow-up. - General Info Functional Status: Reports: Pain Controlled, Tolerating Diet, Ambulating. Denies: New Symptoms - Review of Systems General: Denies: Fever, Weakness HEENT: Reports: No Symptoms Pulmonary: Reports: No Symptoms Cardiovascular: Denies: Chest Pain, Palpitations, Dyspnea on Exertion Gastrointestinal: Reports: No Symptoms Genitourinary: Denies: Dysuria Skin: Denies: Dryness Neurological: Reports: Gait Disturbance (Mild). Denies: Confusion, Dizziness, Headache, Seizure, Tremors, Change in Speech Psychiatric: Denies: Confusion, Agitation - Patient Data Vitals - Most Recent: Last Vital Signs Temp 98.4 F 12/25/18 07:00 Pulse 70 12/25/18 07:00 Resp 20 12/25/18 07:00 BP 164/69 H 12/25/18 07:00 Pulse Ox 93 L 12/25/18 07:00 Weight - Most Recent: 203 lb 14.4 oz I&O - Last 24 hours: Intake & Output 12/24/18 12/25/18 12/25/18 22:59 06:59 14:59 Intake Total 400 100 Output Total 300 1300 Balance 100 -1200 Lab Results - Last 24 hrs: Laboratory Results - last 24 hr 12/24/18 12/24/18 12/24/18 Range/Units 17:59 20:45 20:45 WBC (5.00-10.00) 10^3/uL RBC (3.80-5.50) 10^6/uL Hgb (12.0-16.0) g/dL Hct (37.0-47.0) % MCV (82.0-92.0) fL MCH (27.0-31.0) pg MCHC (32.0-36.0) g/dL RDW (11.5-14.5) % Plt Count (150-400) 10^3/uL MPV (7.4-10.4) fL Immature Gran % (Auto) (0.0-5.0) % Neut % (Auto) (50.0-70.0) % Lymph % (Auto) (20.0-40.0) % [place] % (Auto) (2.0-8.0) % Eos % (Auto) (1.0-3.0) % Baso % (Auto) (0.0-1.0) % Immature Gran # (Auto) (0.00-0.50) 10^3/uL Neut # (Auto) (2.50-7.00) 10^3/uL Lymph # (Auto) (1.00-4.00) 10^3/uL [place] # (Auto) (0.10-0.80) 10^3/uL Eos # (Auto) (0.10-0.30) 10^3/uL Baso # (Auto) (0.00-0.10) 10^3/uL Sodium (136-145) mmol/L Potassium (3.3-5.3) mmol/L Chloride (98-115) mmol/L Carbon Dioxide (21.0-32.0) mmol/L Anion Gap (5-15) mmol/L BUN (6-25) mg/dL Creatinine (0.51-1.17) mg/dL Est Cr Clr Drug Dosing mL/min Estimated GFR (MDRD) mL/min Glucose (75 - 99) mg/dL POC Glucose 433 H (74-106) mg/dl Calcium (8.7-10.3) mg/dL Total Bilirubin (0.2-1.0) mg/dL AST (15-37) U/L ALT (12-78) U/L Alkaline Phosphatase (46-116) IU/L Total Protein (6.4-8.2) g/dL Albumin (3.00-4.80) g/dL Specimen Type Urinvoid Urine Color Yellow (YELLOW) Urine Appearance Clear (CLEAR) Urine pH 5.0 (5.0-9.0) Ur Specific [place] 1.020 (1.005-1.030) Urine Protein 100 H (NEGATIVE) mg/dL Urine Glucose (UA) >=1000 H (NEGATIVE) mg/dL Urine Ketones Negative (NEGATIVE) mg/dL Urine Occult Blood Negative (NEGATIVE) Urine Nitrite Negative (NEGATIVE) Urine Bilirubin Negative (NEGATIVE) Urine Urobilinogen 0.2 (0.2-1.0) E.U./dL Ur Leukocyte Esterase Negative (NEGATIVE) Urine Opiates Screen Negative (NEGATIVE) Ur Oxycodone Screen Negative (NEGATIVE) Urine Methadone Screen Negative (NEGATIVE) Ur Propoxyphene Screen Negative (NEGATIVE) Ur Barbiturates Screen Negative (NEGATIVE) Ur Tricyclics Screen Negative (NEGATIVE) Ur Phencyclidine Scrn Negative (NEGATIVE) Ur Amphetamine Screen Negative (NEGATIVE) U Methamphetamines Scrn Negative (NEGATIVE) U Benzodiazepines Scrn Negative (NEGATIVE) U Cocaine Metab Screen Negative (NEGATIVE) U Marijuana (THC) Screen Negative (NEGATIVE) 12/24/18 12/25/18 12/25/18 Range/Units 21:07 07:52 09:00 WBC (5.00-10.00) 10^3/uL RBC (3.80-5.50) 10^6/uL Hgb (12.0-16.0) g/dL Hct (37.0-47.0) % MCV (82.0-92.0) fL MCH (27.0-31.0) pg MCHC (32.0-36.0) g/dL RDW (11.5-14.5) % Plt Count (150-400) 10^3/uL MPV (7.4-10.4) fL Immature Gran % (Auto) (0.0-5.0) % Neut % (Auto) (50.0-70.0) % Lymph % (Auto) (20.0-40.0) % [place] % (Auto) (2.0-8.0) % Eos % (Auto) (1.0-3.0) % Baso % (Auto) (0.0-1.0) % Immature Gran # (Auto) (0.00-0.50) 10^3/uL Neut # (Auto) (2.50-7.00) 10^3/uL Lymph # (Auto) (1.00-4.00) 10^3/uL [place] # (Auto) (0.10-0.80) 10^3/uL Eos # (Auto) (0.10-0.30) 10^3/uL Baso # (Auto) (0.00-0.10) 10^3/uL Sodium 135 L (136-145) mmol/L Potassium 4.6 (3.3-5.3) mmol/L Chloride 100 (98-115) mmol/L Carbon Dioxide 24.1 (21.0-32.0) mmol/L Anion Gap 15.5 H (5-15) mmol/L BUN 27 H (6-25) mg/dL Creatinine 1.04 (0.51-1.17) mg/dL Est Cr Clr Drug Dosing 36.97 mL/min Estimated GFR (MDRD) 52 mL/min Glucose 235 H (75 - 99) mg/dL POC Glucose 292 H 127 H (74-106) mg/dl Calcium 8.8 (8.7-10.3) mg/dL Total Bilirubin 0.2 (0.2-1.0) mg/dL AST 9 L (15-37) U/L ALT 17 (12-78) U/L Alkaline Phosphatase 77 (46-116) IU/L Total Protein 6.4 (6.4-8.2) g/dL Albumin 2.85 L (3.00-4.80) g/dL Specimen Type Urine Color (YELLOW) Urine Appearance (CLEAR) Urine pH (5.0-9.0) Ur Specific [place] (1.005-1.030) Urine Protein (NEGATIVE) mg/dL Urine Glucose (UA) (NEGATIVE) mg/dL Urine Ketones (NEGATIVE) mg/dL Urine Occult Blood (NEGATIVE) Urine Nitrite (NEGATIVE) Urine Bilirubin (NEGATIVE) Urine Urobilinogen (0.2-1.0) E.U./dL Ur Leukocyte Esterase (NEGATIVE) Urine Opiates Screen (NEGATIVE) Ur Oxycodone Screen (NEGATIVE) Urine Methadone Screen (NEGATIVE) Ur Propoxyphene Screen (NEGATIVE) Ur Barbiturates Screen (NEGATIVE) Ur Tricyclics Screen (NEGATIVE) Ur Phencyclidine Scrn (NEGATIVE) Ur Amphetamine Screen (NEGATIVE) U Methamphetamines Scrn (NEGATIVE) U Benzodiazepines Scrn (NEGATIVE) U Cocaine Metab Screen (NEGATIVE) U Marijuana (THC) Screen (NEGATIVE) 12/25/18 Range/Units 09:00 WBC 12.03 H (5.00-10.00) 10^3/uL RBC 3.79 L (3.80-5.50) 10^6/uL Hgb 11.1 L (12.0-16.0) g/dL Hct 32.6 L (37.0-47.0) % MCV 86.0 (82.0-92.0) fL MCH 29.3 (27.0-31.0) pg MCHC 34.0 (32.0-36.0) g/dL RDW 12.0 (11.5-14.5) % Plt Count 203 (150-400) 10^3/uL MPV 9.0 (7.4-10.4) fL Immature Gran % (Auto) 0.2 (0.0-5.0) % Neut % (Auto) 67.5 (50.0-70.0) % Lymph % (Auto) 25.7 (20.0-40.0) % [place] % (Auto) 3.9 (2.0-8.0) % Eos % (Auto) 2.6 (1.0-3.0) % Baso % (Auto) 0.1 (0.0-1.0) % Immature Gran # (Auto) 0.02 (0.00-0.50) 10^3/uL Neut # (Auto) 8.13 H (2.50-7.00) 10^3/uL Lymph # (Auto) 3.09 (1.00-4.00) 10^3/uL [place] # (Auto) 0.47 (0.10-0.80) 10^3/uL Eos # (Auto) 0.31 H (0.10-0.30) 10^3/uL Baso # (Auto) 0.01 (0.00-0.10) 10^3/uL Sodium (136-145) mmol/L Potassium (3.3-5.3) mmol/L Chloride (98-115) mmol/L Carbon Dioxide (21.0-32.0) mmol/L Anion Gap (5-15) mmol/L BUN (6-25) mg/dL Creatinine (0.51-1.17) mg/dL Est Cr Clr Drug Dosing mL/min Estimated GFR (MDRD) mL/min Glucose (75 - 99) mg/dL POC Glucose (74-106) mg/dl Calcium (8.7-10.3) mg/dL Total Bilirubin (0.2-1.0) mg/dL AST (15-37) U/L ALT (12-78) U/L Alkaline Phosphatase (46-116) IU/L Total Protein (6.4-8.2) g/dL Albumin (3.00-4.80) g/dL Specimen Type Urine Color (YELLOW) Urine Appearance (CLEAR) Urine pH (5.0-9.0) Ur Specific [place] (1.005-1.030) Urine Protein (NEGATIVE) mg/dL Urine Glucose (UA) (NEGATIVE) mg/dL Urine Ketones (NEGATIVE) mg/dL Urine Occult Blood (NEGATIVE) Urine Nitrite (NEGATIVE) Urine Bilirubin (NEGATIVE) Urine Urobilinogen (0.2-1.0) E.U./dL Ur Leukocyte Esterase (NEGATIVE) Urine Opiates Screen (NEGATIVE) Ur Oxycodone Screen (NEGATIVE) Urine Methadone Screen (NEGATIVE) Ur Propoxyphene Screen (NEGATIVE) Ur Barbiturates Screen (NEGATIVE) Ur Tricyclics Screen (NEGATIVE) Ur Phencyclidine Scrn (NEGATIVE) Ur Amphetamine Screen (NEGATIVE) U Methamphetamines Scrn (NEGATIVE) U Benzodiazepines Scrn (NEGATIVE) U Cocaine Metab Screen (NEGATIVE) U Marijuana (THC) Screen (NEGATIVE) Med Orders - Current: Current Medications Acetaminophen (Tylenol) 325 - 650 mg PO Q4H PRN PRN Reason: Pain Aspirin (Halfprin) 81 mg PO DAILY [facility] Last Admin: 12/25/18 08:06 Dose: 81 mg Insulin Aspart (Novolog Mix 70-30) 17 unit SUBCUT BIDMEALS [facility] Last Admin: 12/25/18 08:05 Dose: 17 unit Latanoprost (Xalatan 0.005% Ophth Soln) 0 ml EYEBOTH BEDTIME [facility] Last Admin: 12/24/18 21:05 Dose: 1 drop Discontinued Medications Insulin Aspart (Novolog) 5 unit SUBCUT ONETIME ONE Stop: 12/24/18 18:08 Last Admin: 12/24/18 18:31 Dose: 5 unit Insulin Aspart (Novolog) 5 unit SUBCUT ONETIME ONE Stop: 12/24/18 22:28 Last Admin: 12/24/18 22:40 Dose: 5 units - Exam Quality Assessment: Denies: Supplemental Oxygen General: Reports: Alert, Oriented, Cooperative, No Acute Distress Neck: Reports: No JVD Lungs: Reports: Clear to Auscultation, Normal Respiratory Effort Cardiovascular: Reports: Regular Rate, Regular Rhythm GI/Abdominal Exam: No Distention (Female) Exam: Deferred Rectal (Female) Exam: Deferred Back Exam: Denies: CVA Tenderness (L), CVA Tenderness (R) Neurological: Reports: No New Focal Deficit Psy/Mental Status: Reports: Alert, Normal Affect. Denies: Anxious
== END 2018-12-25 11:23 | disposition home health service (06) ==
LOC: KA.MS 14:37
PROVIDERS: ADMIT Nurse Practitioner Family; ATTEND Nurse Practitioner Family
DX: T65.91XA Toxic effect of unspecified substance, accidental (unintentional), initial encounter (principal); R41.82 Altered mental status, unspecified; I67.82 Cerebral ischemia; E78.5 Hyperlipidemia, unspecified; N18.3 Chronic kidney disease, stage 3 (moderate); E11.65 Type 2 diabetes mellitus with hyperglycemia; I13.0 Hypertensive heart and chronic kidney disease with heart failure and stage 1 through stage 4 chronic kidney disease, or unspecified chronic kidney disease; E11.22 Type 2 diabetes mellitus with diabetic chronic kidney disease; I50.9 Heart failure, unspecified; E11.40 Type 2 diabetes mellitus with diabetic neuropathy, unspecified; J44.9 Chronic obstructive pulmonary disease, unspecified; I25.10 Atherosclerotic heart disease of native coronary artery without angina pectoris; F41.8 Other specified anxiety disorders; E66.9 Obesity, unspecified; G47.33 Obstructive sleep apnea (adult) (pediatric); R29.6 Repeated falls; Z91.81 History of falling; Z79.82 Long term (current) use of aspirin; Z79.4 Long term (current) use of insulin; Z79.899 Other long term (current) drug therapy; Z91.048 Other nonmedicinal substance allergy status; Z88.8 Allergy status to other drugs, medicaments and biological substances; Z79.891 Long term (current) use of opiate analgesic; Z99.89 Dependence on other enabling machines and devices; Z87.891 Personal history of nicotine dependence; Z68.37 Body mass index [BMI] 37.0-37.9, adult
CPT/HCPCS: 36415; 70450; 80053; 80305-QW; 81003; 82962; 85025; A9270-GY; G0378; J1815-GY